=== PATIENT | male | born 1940 ===

== ENCOUNTER 2017-03-01 09:36 | Inpatient (IN) | payer OTHER ==
--- NOTE | 2017-03-01 11:42 | C.PDOC ---
History Of Present Illness 77 y/o male with PMHx of Anemia presents to ED sent by PMD for evaluation on near syncope and urine incontinence while at office earlier today. As per family at bedside patient has been feeling lightheaded for 2-3 weeks and went to see doctor today. While at office patient was sitting, stood up and became dizzy following shaking episode but as per family patient was oriented and did not have loc. There is inconsistency of whether patient had seizure episode. PMD sent patient for evaluation and to rule out seizure. At ed patient denies nausea, vomiting, abdominal pain, chest pain or any other complaints at this time. Time Seen by Provider: 03/01/17 11:09 Chief Complaint (Nursing): Syncope History Per: Patient, Family History/Exam Limitations: no limitations Onset/Duration Of Symptoms: Days, Worse Since (earlier today) Activity At Onset Of Symptoms: Standing Past Medical History Reviewed: Historical Data, Nursing Documentation, Vital Signs Vital Signs: Last Vital Signs Temp 97.7 F 03/04/17 07:45 Pulse 69 03/04/17 07:45 Resp 20 03/04/17 07:45 BP 144/70 03/04/17 07:45 Pulse Ox 98 03/04/17 07:45 - Medical History PMH: Anemia Surgical History: No Surg Hx Family History: States: No Known Family Hx - Social History Hx Alcohol Use: No Hx Substance Use: No - Immunization History Hx Tetanus Toxoid Vaccination: No Hx Influenza Vaccination: No Hx Pneumococcal Vaccination: No Review Of Systems Constitutional: Negative for: Fever, Chills Cardiovascular: Negative for: Chest Pain Gastrointestinal: Negative for: Nausea, Vomiting, Abdominal Pain Skin: Negative for: Rash Neurological: Positive for: Dizziness. Negative for: Weakness, Numbness Physical Exam - Physical Exam Additional Physical Exam Comments: Constitutional: No acute distress. Thin appearing Head: Normocephalic. Atraumatic. Temporal wasting Eyes: Pupils small. Pale conjunctiva ENT: Moist mucous membranes. Neck: Supple. Cardiovascular: Regular rate and rhythm. Chest: No tenderness. Respiratory: Clear to auscultation bilaterally. GI: Soft. Nontender. Nondistended. Normoactive bowel sounds. No rebound. No guarding. Back: No CVA and no mid-line tenderness. Musculoskeletal: No tenderness or swelling of extremities. Skin: No rash. Pale Neurologic: Alert, no focal deficit. Normal sensation. Normal motor. Normal cranial nerves ED Course And Treatment - Laboratory Results Result Diagrams: 03/04/17 08:15 03/04/17 08:15 ECG: Interpreted By Me, Viewed By Me ECG Rhythm: Sinus Rhythm ECG Interpretation: Normal Rate From EC (bpm) O2 Sat by Pulse Oximetry: 100 (RA) Pulse Ox Interpretation: Normal Medical Decision Making Medical Decision Making: Plan: Head CT w/ contrast, Blood work, UA, ECG Disposition Discussed With Dr.: Luiz Forbes Doctor Will See Patient In The: Hospital - Disposition Disposition: HOSPITALIZED Disposition Time: 14:15 Condition: SERIOUS - Clinical Impression Clinical Impression: Near syncope, Anemia - PA / LABOR RELATIONS OR PERSONNEL NEGOTIATOR / Resident Statement MD/DO has reviewed & agrees with the documentation as recorded. - Scribe Statement The provider has reviewed the documentation as recorded by the Miriamibjoslyn García All medical record entries made by the Scribe were at my direction and personally dictated by me. I have reviewed the chart and agree that the record accurately reflects my personal performance of the history, physical exam, medical decision making, and the department course for this patient. I have also personally directed, reviewed, and agree with the discharge instructions and disposition. Decision To Admit - Pt Status Changed To: Hospital Disposition Of: Inpatient - Admit Certification Admit to Inpatient:: After my assessment, the patient will require hospitalization for at least two midnights. This is because of the severity of symptoms shown, intensity of services needed, and/or the medical risk in this patient being treated as an outpatient. - InPatient: Physician Admission Certification: I certify that this patient requires 2 or more midnights of care for the following reason:: for tx of anemia, anemia workup - . Bed Request Type: Telemetry Patient Diagnosis: Near syncope, Anemia
[2017-03-01 12:22] LABS: BASO % 0.2 % (0.0-2.0); EOS % 1.4 % (0.0-4.0); HEMATOCRIT 15.2 % (35.0-51.0); LYMPH % 38.3 % (20.0-40.0); MEAN CELL VOLUME 106.1 fL (80.0-94.0); MEAN CORPUSCULAR HEMOGLOBIN 36.3 pg (27.0-31.0); MEAN CORPUSCULAR HGB CONC 34.2 g/dL (33.0-37.0); MEAN PLATELET VOLUME 9.7 fL (7.2-11.7); MONO # 0.1 K/uL (0.0-0.8); MONO % 1.9 % (0.0-10.0); NRBC % 0.2 % (0.0-2.0); RED CELL DISTRIBUTION WIDTH 19.8 % (11.5-14.5); WHITE BLOOD COUNT 2.7 K/uL (4.8-10.8)
--- NOTE | 2017-03-01 12:47 | CT ---
PROCEDURE: CT HEAD WITHOUT CONTRAST. HISTORY: R/O Bleed COMPARISON: None available. TECHNIQUE: Axial computed tomography images were obtained through the head/brain without intravenous contrast. Radiation dose: Total exam DLP = 828.03 mGy-cm. This CT exam was performed using one or more of the following dose reduction techniques: Automated exposure control, adjustment of the mA and/or kV according to patient size, and/or use of iterative reconstruction technique. FINDINGS: HEMORRHAGE: No intracranial hemorrhage. BRAIN: Diffuse atrophy with prominence of the ventricles and sulci noted. No mass effect or edema. Intracranial atherosclerosis. Scattered periventricular and subcortical white matter hypodensities, which are nonspecific, but often seen with chronic microvascular ischemic disease. Please note that MRI with diffusion imaging is more sensitive in the detection of acute ischemic event. VENTRICLES: No hydrocephalus. CALVARIUM: Unremarkable. PARANASAL SINUSES: Unremarkable as visualized. No significant inflammatory changes. MASTOID AIR CELLS: Unremarkable as visualized. No inflammatory changes. OTHER FINDINGS: None. IMPRESSION: Generalized atrophy. Nonspecific white matter changes.
[2017-03-01 13:48] LABS: ALB/GLOB RATIO 0.9 (1.0-2.1); ALKALINE PHOSPHATASE 57 U/L (38-126); ALT/SGPT 40 U/L (21-72); AST/SGOT 53 U/L (17-59); BLOOD UREA NITROGEN 15 mg/dL (9-20); CALCIUM 8.4 mg/dl (8.6-10.4); CARBON DIOXIDE 27 mmol/L (22-30); CHLORIDE 99 mmol/L (98-107); GFR AFRICAN-AMERICAN > 60; GLUCOSE,RANDOM 121 mg/dL (75-110); POTASSIUM 3.8 mmol/L (3.6-5.2); SODIUM 131 mmol/L (132-148); TOTAL PROTEIN 7.6 g/dL (6.3-8.3)
--- NOTE | 2017-03-01 14:43 | CP.PCM.HP ---
History of Present Illness - History of Present Illness History of Present Illness: CC: "I felt dizzy" HPI: Patient is a 77 year old male with no significant past medical history presents to the ED for dizziness. Patient states that he has been feeling dizzy for the past 2 weeks. This morning patient went to stand up and immediately felt like he was going to pass out. Patient states that he sat back down. Denies any loss of consciousness. Offers no other complaints at this time. Admits to having 10kg weight loss over the past year. Attributes weight loss to decrease in appetite. Patient reports that he last saw his PMD, Dr Eaton 1 year ago. Denies having any blood work done recently. Patient denies any history of anemia in the past. Denies headaches, visual changes, cp, palpitations, sob, abdominal pain, blood per rectum, urinary symptoms, changes in bowel habits or stool caliber. PMD: Dr Eaton Allergies: NKDA Medications: Denies Medical Hx: Denies Surgical Hx: Prostate surgery Social Hx: Denies alcohol, tobacco, drug use Family Hx: Non-contributory Indemand used for [place] Interpretation #[id number] Present on Admission - Present on Admission Any Indicators Present on Admission: No Review of Systems - Review of Systems All systems: reviewed and no additional remarkable complaints except - Constitutional Constitutional: Weight Loss. absent: Chills, Fever, Headache - EENT Eyes: absent: Change in Vision Ears: Dizziness - Cardiovascular Cardiovascular: absent: Chest Pain, Dyspnea, Dyspnea on Exertion, Palpitations - Respiratory Respiratory: absent: Cough, Dyspnea, Wheezing - Gastrointestinal Gastrointestinal: absent: Abdominal Pain, Change in Stool Character, Constipation, Diarrhea, Melena, Nausea, Vomiting - Genitourinary Genitourinary: absent: Dysuria, Hematuria - Neurological Neurological: Dizziness. absent: Confusion, Numbness, Frequent Falls, Headaches , Tingling - Psychiatric Psychiatric: absent: Anxiety, Depression Past Patient History - Past Social History Smoking Status: Never Smoked - HEMATOLOGICAL/ONCOLOGICAL Hx Anemia: Yes - GENITOURINARY/GYNECOLOGICAL Hx Prostate Problems: Yes - PSYCHIATRIC Hx Substance Use: No - SURGICAL HISTORY Other/Comment: PROSTATES SX - ANESTHESIA Hx Anesthesia: Yes Hx Anesthesia Reactions: No Meds Allergies/Adverse Reactions: Allergies Allergy/AdvReac Type Severity Reaction Status Date / Time No Known Allergies Allergy Verified 03/01/17 09:51 Physical Exam - Constitutional Appears: Well, No Acute Distress - Head Exam Head Exam: ATRAUMATIC, NORMAL INSPECTION, NORMOCEPHALIC - Eye Exam Eye Exam: EOMI, Normal appearance, PERRL. absent: Scleral icterus Pupil Exam: NORMAL ACCOMODATION Additional comments: +pale conjunctiva - ENT Exam ENT Exam: Mucous Membranes Moist - Neck Exam Neck exam: Positive for: Full Rom - Respiratory Exam Respiratory Exam: Clear to Auscultation Bilateral, NORMAL BREATHING PATTERN. absent: Decreased Breath Sounds, Rales, Rhonchi, Wheezes, Respiratory Distress - Cardiovascular Exam Cardiovascular Exam: REGULAR RHYTHM, +S1, +S2. absent: Tachycardia, Systolic Murmur - GI/Abdominal Exam GI & Abdominal Exam: Normal Bowel Sounds, Soft. absent: Distended, Firm, Guarding, Rebound, Rigid, Tenderness - Rectal Exam Rectal Exam: Deferred Additional comments: Rectal exam performed by ED attending, please see note - Extremities Exam Extremities exam: Positive for: full ROM, normal inspection, pedal pulses present. Negative for: calf tenderness, pedal edema - Back Exam Back exam: NORMAL INSPECTION - Neurological Exam Neurological exam: Alert, CN II-XII Intact, Oriented x3 - Psychiatric Exam Psychiatric exam: Normal Affect, Normal Mood - Skin Skin Exam: Dry, Normal Color, Warm Results - Vital Signs Recent Vital Signs: Last Vital Signs Temp 97.9 F 03/01/17 09:47 Pulse 65 03/01/17 09:47 Resp 16 03/01/17 09:47 BP 113/41 L 03/01/17 09:47 Pulse Ox 100 03/01/17 14:19 - Labs Result Diagrams: 03/01/17 12:16 03/01/17 12:16 Labs: Laboratory Results - last 24 hr 03/01/17 03/01/17 03/01/17 12:16 12:16 12:48 WBC 2.7 L RBC 1.43 L Hgb 5.2 L* Hct 15.2 L MCV 106.1 H MCH 36.3 H MCHC 34.2 RDW 19.8 H Plt Count 90 L MPV 9.7 Neut % (Auto) 58.2 Lymph % (Auto) 38.3 Weber % (Auto) 1.9 Eos % (Auto) 1.4 Baso % (Auto) 0.2 Neut # 1.6 L Lymph # 1.0 Weber # 0.1 Eos # 0.0 Baso # 0.0 Sodium 131 L Potassium 3.8 Chloride 99 Carbon Dioxide 27 Anion Gap 9 L BUN 15 Creatinine 0.8 Est GFR ( Amer) > 60 Est GFR (Non-Af Amer) > 60 Random Glucose 121 H Calcium 8.4 L Total Bilirubin 1.0 AST 53 ALT 40 Alkaline Phosphatase 57 Troponin I < 0.0120 Total Protein 7.6 Albumin 3.7 Globulin 4.0 H Albumin/Globulin Ratio 0.9 L Stool Occult Blood Blood Type B POSITIVE Blood Type Confirm B POSITIVE Antibody Screen Negative 03/01/17 13:15 WBC RBC Hgb Hct MCV MCH MCHC RDW Plt Count MPV Neut % (Auto) Lymph % (Auto) Weber % (Auto) Eos % (Auto) Baso % (Auto) Neut # Lymph # Weber # Eos # Baso # Sodium Potassium Chloride Carbon Dioxide Anion Gap BUN Creatinine Est GFR ( Amer) Est GFR (Non-Af Amer) Random Glucose Calcium Total Bilirubin AST ALT Alkaline Phosphatase Troponin I Total Protein Albumin Globulin Albumin/Globulin Ratio Stool Occult Blood Negative Blood Type Blood Type Confirm Antibody Screen Assessment & Plan - Assessment and Plan (Free Text) Assessment: 1. Symptomatic Anemia -Will admit to telemetry -Hgb on admission 5.2, baseline unknown -Patient denies any bleeding history -Stool occult negative -F/U anemia workup (Iron, TIBC, ferritin, Vit B12, Folate, Haptoglobin) -Transfuse 2 units of PRBCs -F/U post transfusion CBC -CT abd/pelvis with PO contrast ordered -Hematolgy/Oncology consulted, f/u recommendations -GI consulted, Dr. Raines, f/u recommendations 2. Near syncope likely secondary to symptomatic anemia -CT head showed generalized atrophy, non-specific white matter changes -Monitor on telemetry -Fall precautions 3. Pancytopenia -Patient states having 10kg weight loss over course of 1 year -Must R/O malignancy -Hematology/Oncology consult placed -Will continue to monitor GI/DVT ppx -Protonix 40mg PO daily -SCDs
[2017-03-01 15:24] LABS: RBC URINE 6 /hpf (0-3); URINE BILIRUBIN NEGATIVE (NEGATIVE); URINE BLOOD 1+ (NEGATIVE); URINE COLOR Yellow (YELLOW); URINE GLUCOSE (UA) NORMAL (Normal); URINE HYALINE CAST 0-2 /lpf (0-2); URINE KETONE TRACE mg/dL (NEGATIVE); URINE LEUKOCYTE ESTERASE NEG Leu/uL (Negative); URINE PROTEIN NEGATIVE (NEGATIVE); WBC URINE 2 /hpf (0-5)
[2017-03-01 15:46] LABS: IRON 113 ug/dL (49-181)
--- NOTE | 2017-03-01 15:47 | RAD ---
HISTORY: severe anemia,near syncope COMPARISON: No prior. FINDINGS: LUNGS: No active pulmonary disease. PLEURA: Small right pleural effusion versus pleural thickening. No pneumothorax apparent. CARDIOVASCULAR: Atherosclerotic aortic calcifications. Cardiomediastinal silhouette prominent. OSSEOUS STRUCTURES: Degenerative changes. VISUALIZED UPPER ABDOMEN: Normal. OTHER FINDINGS: None. IMPRESSION: Small right pleural effusion versus pleural thickening.
[2017-03-01 16:55] LABS: FOLATE 5.1 ng/mL
[2017-03-02 07:35] LABS: INR 1.2
[2017-03-02 07:44] LABS: BASO % 0.4 % (0.0-2.0); EOS % 2.2 % (0.0-4.0); HEMATOCRIT 20.3 % (35.0-51.0); LYMPH # 1.1 K/uL (1.0-4.3); LYMPH % 50.2 % (20.0-40.0); MEAN CORPUSCULAR HEMOGLOBIN 34.4 pg (27.0-31.0); MEAN CORPUSCULAR HGB CONC 35.4 g/dL (33.0-37.0); MEAN PLATELET VOLUME 9.3 fL (7.2-11.7); MONO % 1.9 % (0.0-10.0); NRBC % 0.3 % (0.0-2.0); RED CELL DISTRIBUTION WIDTH 20.2 % (11.5-14.5); WHITE BLOOD COUNT 2.2 K/uL (4.8-10.8)
[2017-03-02 07:46] LABS: MEAN CELL VOLUME 97.2 fL (80.0-94.0)
[2017-03-02 07:54] LABS: ALB/GLOB RATIO 1.2 (1.0-2.1); ALKALINE PHOSPHATASE 49 U/L (38-126); ALT/SGPT 32 U/L (21-72); AST/SGOT 51 U/L (17-59); BILIRUBIN,TOTAL 1.4 mg/dL (0.2-1.3); BLOOD UREA NITROGEN 12 mg/dL (9-20); CARBON DIOXIDE 29 mmol/L (22-30); CHLORIDE 98 mmol/L (98-107); GFR AFRICAN-AMERICAN > 60; GLUCOSE,RANDOM 90 mg/dL (75-110); POTASSIUM 3.9 mmol/L (3.6-5.2); SODIUM 129 mmol/L (132-148)
[2017-03-02 08:34] LABS: CARCINOEMBRYONIC ANTIGEN 1.2 ng/mL (0-3.0); PROSTATE SPECIFIC ANTIGEN 4.56 ng/mL (0.00-4.0)
[2017-03-02 09:10] LABS: CA 19-9 9.6 U/mL (0-37)
[2017-03-02 09:31] LABS: TOTAL PROTEIN 6.6 g/dL (6.3-8.3)
[2017-03-02] MEDS: Pantoprazole 40 mg EC Tab PO SCH (09:50)
--- NOTE | 2017-03-02 10:17 | CP.PCM.PN ---
Subjective - Date & Time of Evaluation Date of Evaluation: 03/02/17 Time of Evaluation: 09:51 - Subjective Subjective: PGY-[address] Forbes. No acute event overnight noted. Translation device was used to communicate. Patient' and daughter were at bedside. His only complaint today was feeling hungry (however patient is npo due to CT abd/pelvis). He denied dizziness today. Patient denies chest pain, abdominal pain, fevers, chills, nausea, vomiting, diarrhea, shortness of breath. Objective - Vital Signs/Intake and Output Vital Signs (last 24 hours): Temp Pulse Resp BP Pulse Ox 98.3 F 64 20 122/58 L 95 03/02/17 07:14 03/02/17 07:14 03/02/17 07:14 03/02/17 07:14 03/02/17 07:14 Intake and Output: 03/02/17 03/02/17 06:59 18:59 Intake Total 325 Balance 325 - Medications Medications: Current Medications Pantoprazole Sodium (Protonix Ec Tab) 40 mg PO DAILY [place] Last Admin: 03/02/17 09:50 Dose: Not Given - Labs Labs: 03/02/17 07:17 03/02/17 07:17 PT 13.4 SECONDS (9.7-12.2) H 03/02/17 07:17 INR 1.2 03/02/17 07:17 APTT 31 SECONDS (21-34) 03/02/17 07:17 - Additional Findings Additional findings: - Constitutional Appears: Well, No Acute Distress - Head Exam Head Exam: ATRAUMATIC, NORMAL INSPECTION, NORMOCEPHALIC - Eye Exam Eye Exam: EOMI, Normal appearance, PERRL. absent: Scleral icterus Pupil Exam: NORMAL ACCOMODATION Additional comments: +pale conjunctiva - ENT Exam ENT Exam: Mucous Membranes Moist - Neck Exam Neck exam: Positive for: Full Rom - Respiratory Exam Respiratory Exam: Clear to Auscultation Bilateral, NORMAL BREATHING PATTERN. absent: Decreased Breath Sounds, Rales, Rhonchi, Wheezes, Respiratory Distress - Cardiovascular Exam Cardiovascular Exam: REGULAR RHYTHM, +S1, +S2. absent: Tachycardia, Systolic Murmur - GI/Abdominal Exam GI & Abdominal Exam: Normal Bowel Sounds, Soft. absent: Distended, Firm, Guarding, Rebound, Rigid, Tenderness - Rectal Exam Rectal Exam: Deferred Additional comments: Rectal exam performed by ED attending, please see note - Extremities Exam Extremities exam: Positive for: full ROM, normal inspection, pedal pulses present. Negative for: calf tenderness, pedal edema - Back Exam Back exam: NORMAL INSPECTION - Neurological Exam Neurological exam: Alert, Oriented x3 - Psychiatric Exam Psychiatric exam: Normal Affect, Normal Mood - Skin Skin Exam: Dry, Normal Color, Warm Assessment and Plan - Assessment and Plan (Free Text) Assessment: Symptomatic Anemia Likely 2/2 to Vitamin B12 deficiency: Elevated MCV, Vitamin B12 <159 (L), elevated LDH Patient denies hx of bleeding; FOBT negative; Denies alcohol use GI consulted, Dr. Raines Heme/Onc consulted, Dr Irwin Hgb 5.2 on admission, baseline unknown, no prior records in chart; s/p transfusion of 2 units of pRBCs 03/01; Hgb improved to 7.2 post transfusion Iron 113, TIBC 202 (L), Ferritin 251, % Saturation 56 (H), Retic Count 2 (H) -Calculated Reticulocyte Index = <2.0 -> signifies hypoproliferation Elevated MCV, Vitamin B12 <159 (L), Folate 5.1, Lactate Dehydrogenase 3569 (H) F/U Haptoglobin, Indirect Bili F/U CT abd/pelvis with PO contrast Possible EGD after CT abd/pelvis results Meds: Vitamin B12 1mg IM QD started 03/02 (will con't IM QD for 7 days then PO QWK for 4 weeks then QMonth for life) Dextrose 5% in NS IV @ 80 cc/hr Near syncope Likely 2/[address] head 03/01: generalized atrophy, non-specific white matter changes Fall precautions Pancytopenia Severe megaloblastic anemia can cause pancytopenia, however must r/o malignancy Decreased appetite; Weight loss of 10kg over last 1 year Heme/Onc consulted, Dr Irwin F/U CT abd/pelvis with PO contrast F/U Protein electrophoresis Carcinoembryonic Ag WNL, CA 19-9 Antigen WNL Elevated Prostate Specific Ag F/U CT abd/pelvis with PO contrast UA 03/01: 1+ blood, RBC 6 (H) GI/DVT ppx Protonix 40mg PO daily SCDs
[2017-03-02] MEDS ORDERED: Iohexol 240 (50 ml) PO ONE (13:00)
--- NOTE | 2017-03-02 17:24 | CT ---
PROCEDURE: CT Abdomen and Pelvis with contrast HISTORY: symptomatic anemia, hgb 5 COMPARISON: None. TECHNIQUE: Oral contrast only. Radiation dose: Total exam DLP = 376.73 mGy-cm. This CT exam was performed using one or more of the following dose reduction techniques: Automated exposure control, adjustment of the mA and/or kV according to patient size, and/or use of iterative reconstruction technique. FINDINGS: LOWER THORAX: Dependent atelectasis. Solitary pulmonary nodule 6 mm basilar segment right lower lobe. Please refer to axial series 5, image 17. Orthogonal sequences confirmation sagittal series 602, image 55. LIVER: Unremarkable. No gross lesion or ductal dilatation. Multiple hepatic masses/cysts. None of these sampled exceed mean Hounsfield values of 10. GALLBLADDER AND BILE DUCTS: Unremarkable. PANCREAS: Unremarkable. No gross lesion or ductal dilatation. SPLEEN: Unremarkable. ADRENALS: Unremarkable. No mass. KIDNEYS AND URETERS: Unremarkable. No hydronephrosis. No solid mass. VASCULATURE: Unremarkable. No aortic aneurysm. BOWEL: Unremarkable. No obstruction. No gross mural thickening. Constipation without fecal impaction or obstruction. Diverticulosis particularly in the descending colon and sigmoid. No definite colonic masses although fecal debris and sigmoid wall thickness cannot be differentiated in a short segment of the distal descending colon. . No definite colonic mass is associated with this finding. The area of most interest, concern of resides in the distal sigmoid Cystic mass contiguous with perhaps emanating from the greater curvature of the stomach. This measures 3.3 cm. Please refer to series 3 axial image 26. APPENDIX: Normal appendix. PERITONEUM: Unremarkable. No free fluid. No free air. LYMPH NODES: Unremarkable. No enlarged lymph nodes. BLADDER: Unremarkable. REPRODUCTIVE: Enlarged prostate 4.9 x 5.5 cm BONES: No acute fracture. Small cortical lucencies super acetabular region on the left. These appear to be benign. Multilevel degenerative change. OTHER FINDINGS: None. IMPRESSION: No acute findings related to/accounting for the clinical presentation. Indeterminate findings in the left upper quadrant likely cystic mass emanating from the greater curve. Diverticulosis particularly in the descending colon and sigmoid.
[2017-03-02] MEDS: Dextrose 5%/0.9% NS 1,000 ML IV SCH (18:22)
[2017-03-03] MEDS: Dextrose 5%/0.9% NS 1,000 ML IV SCH ×2 (05:58→16:56)
--- NOTE | 2017-03-03 06:43 | CON ---
DATE: 03/02/2017 LOCATION: Room 562, bed A. I was called for a GI consultation. The patient is seen and examined in the floor. The entire chart is reviewed including but not limited to the most recent lab and radiology study results, current and the previous medication list, current and the previous medical events. Case discussed with the medical reception specialist today. HISTORY OF PRESENT ILLNESS: This is a 77 years old male who was admitted to the hospital through the emergency room with underlying diagnoses of generalized weakness and malaise, was found to have severe anemia with low hemoglobin and hematocrit. Has no reported active bleeding, no abdominal pain, no chest pain, and the patient has a history of anemia as reported. LABORATORY DATA: Today's labs showed hemoglobin increased 7.2 with hematocrit 20.3 but with platelet count of 64 with low white blood cells 2.2 indicative of pancytopenia with low sodium 129 and mildly elevated total bilirubin 1.4 with excessive increase of the lactate dehydrogenase to 3569 with increased PSA to 4.5 as ordered by myself. PHYSICAL EXAMINATION: GENERAL: Showed no significant clinical changes. Patient is afebrile, awake, alert. VITAL SIGNS: Pulse of 70, respiratory rate 20 to 22, blood pressure 124/54. IMPRESSION: Anemia, hypochromic microcytic with evidence of pancytopenia. No evidence of bleeding, no reported body weight loss as per patient's statement through label stitcher. SUGGESTIONS: 1. Agree with your plan. 2. Ultrasound of the prostate. 3. Hematology/Oncology consult. 4. Barium enema to be followed by upper GI with small bowel follow through after abdominal CAT scan to be done. 5. Any endoscopic procedure could be done as outpatient as the patient has no signs of active bleeding and his anemia apparently is chronic. Thank you for letting me participate in your patient's case management. We will follow up only p.r.n. as outpatient. Mitesh Salgado MD
--- NOTE | 2017-03-03 07:10 | CP.PCM.PN ---
Subjective - Date & Time of Evaluation Date of Evaluation: 03/03/17 Time of Evaluation: 07:03 - Subjective Subjective: PGY-[address] Forbes. No acute event overnight noted. Translation device was used to communicate. Patient was NPO for possible EGD today, however after speaking to Dr Raines EGD will not be done and diet was re-started. He again denied dizziness today. Patient denies chest pain, abdominal pain, fevers, chills, nausea, vomiting, diarrhea, shortness of breath. Objective - Vital Signs/Intake and Output Vital Signs (last 24 hours): Temp Pulse Resp BP Pulse Ox 98 F 60 18 111/55 L 97 03/02/17 23:58 03/03/17 04:06 03/02/17 23:58 03/02/17 23:58 03/02/17 23:58 Intake and Output: 03/03/17 03/03/17 06:59 18:59 Intake Total 1720 Balance 1720 - Medications Medications: Current Medications Cyanocobalamin (Vitamin B12 1000 Mcg/Ml Inj) 1,000 mcg IM DAILY [facility] Stop: 03/06/17 23:59 Last Admin: 03/02/17 10:27 Dose: Not Given Dextrose/Sodium Chloride (Dextrose 5%/0.9% Ns 1000 Ml) 1,000 mls @ 80 mls/hr IV .[id number] [facility] Last Admin: 03/03/17 05:58 Dose: 80 mls/hr Pantoprazole Sodium (Protonix Ec Tab) 40 mg PO DAILY [facility] Last Admin: 03/02/17 09:50 Dose: Not Given - Labs Labs: 03/02/17 07:17 03/02/17 07:17 PT 13.4 SECONDS (9.7-12.2) H 03/02/17 07:17 INR 1.2 03/02/17 07:17 APTT 31 SECONDS (21-34) 03/02/17 07:17 - Additional Findings Additional findings: - Constitutional Appears: Well, No Acute Distress - Head Exam Head Exam: ATRAUMATIC, NORMAL INSPECTION, NORMOCEPHALIC - Eye Exam Eye Exam: EOMI, Normal appearance, PERRL. absent: Scleral icterus Pupil Exam: NORMAL ACCOMODATION Additional comments: +pale conjunctiva - ENT Exam ENT Exam: Mucous Membranes Moist - Neck Exam Neck exam: Positive for: Full Rom - Respiratory Exam Respiratory Exam: Clear to Auscultation Bilateral, NORMAL BREATHING PATTERN. absent: Decreased Breath Sounds, Rales, Rhonchi, Wheezes, Respiratory Distress - Cardiovascular Exam Cardiovascular Exam: REGULAR RHYTHM, +S1, +S2. absent: Tachycardia, Systolic Murmur - GI/Abdominal Exam GI & Abdominal Exam: Normal Bowel Sounds, Soft. absent: Distended, Firm, Guarding, Rebound, Rigid, Tenderness - Rectal Exam Rectal Exam: Deferred Additional comments: Rectal exam performed by ED attending, please see note - Extremities Exam Extremities exam: Positive for: full ROM, normal inspection, pedal pulses present. Negative for: calf tenderness, pedal edema - Back Exam Back exam: NORMAL INSPECTION - Neurological Exam Neurological exam: Alert, Oriented x3 - Psychiatric Exam Psychiatric exam: Normal Affect, Normal Mood - Skin Skin Exam: Dry, Normal Color, Warm Assessment and Plan - Assessment and Plan (Free Text) Assessment: Symptomatic Anemia Likely 2/2 to Vitamin B12 deficiency: Elevated MCV, Vitamin B12 <159 (L), elevated LDH Patient denies hx of bleeding; FOBT negative; Denies alcohol use GI consulted, Dr. Raines - per Dr Raines, endoscopic procedures to be done outpatient as pt w/ no signs of active bleeding and anemia is chronic; per Dr Raines patient refused bone marrow biopsy in ED. Heme/Onc consulted, Dr Irwin Hgb 5.2 on admission, baseline unknown, no prior records in chart s/p transfusion of 2 units of pRBCs 03/01 s/p transfusion of 2 units of pRBC 03/03 Iron 113, TIBC 202 (L), Ferritin 251, % Saturation 56 (H), Retic Count 2 (H) -Calculated Reticulocyte Index = <2.0 -> signifies hypoproliferation Elevated MCV, Vitamin B12 <159 (L), Folate 5.1, Lactate Dehydrogenase 3569 (H) Haptoglobin <15 (L) Direct Bili 0.5 (H), Total Bili 1.4 (H) Hep panel negative HIV Screen negative CT abd/pelvis with PO contrast 03/01 results shown below Consider barium enema of upper GI w/ small bowel follow through for 03/04 F/U parietal cell Ab F/U Flow cytometry Meds: Vitamin B12 1mg IM QD started 03/02 (will con't IM QD for 7 days then PO QWK for 4 weeks then QMonth for life) Dextrose 5% in NS IV @ 80 cc/hr Folate 1mg PO QD Near syncope Likely 2/[address] head 03/01: generalized atrophy, non-specific white matter changes Fall precautions Pancytopenia Severe megaloblastic anemia can cause pancytopenia, however must r/o malignancy Decreased appetite; Weight loss of 10kg over last 1 year Heme/Onc consulted, Dr Irwin CT abd/pelvis with PO contrast 03/01: "Multiple hepatic masses/cysts. None of these sampled exceed mean Hounsfield values of 10. Solitary pulmonary nodule 6 mm basilar segment right lower lung lobe. Cystic mass contiguous with perhaps emanating from the greater curvature of the stomach. This measures 3.3 cm. Impression: Indeterminate findings in the left upper quadrant likely cystic mass emanating from the greater curve. Diverticulosis particularly in the descending colon and sigmoid". Serum PEP 03/01: Decrease in albumin. Pattern suggestive of decreased protein synthesis or protein loss. Carcinoembryonic Ag WNL, CA 19-9 Antigen WNL Elevated Prostate Specific Ag UA 03/01: 1+ blood, RBC 6 (H) CT abd/pelvis with PO contrast: enlarged prostate 4.9 x 5.5 cm A transrectal prostate ultrasound was ordered however this could not be done in house (per tech) and will to be done outpatient GI/DVT ppx Protonix 40mg PO daily [facility] Disposition: Per Dr Raines, endoscopic procedures (colonoscopy) to be done outpatient. Patient needs to establish care with a PMD. He will need contact information for [facility] upon discharge.
[2017-03-03 07:37] LABS: BASO % 0.2 % (0.0-2.0); EOS % 2.8 % (0.0-4.0); HEMATOCRIT 19.7 % (35.0-51.0); LYMPH # 0.8 K/uL (1.0-4.3); LYMPH % 44.3 % (20.0-40.0); MEAN CELL VOLUME 97.7 fL (80.0-94.0); MEAN CORPUSCULAR HEMOGLOBIN 34.8 pg (27.0-31.0); MEAN CORPUSCULAR HGB CONC 35.6 g/dL (33.0-37.0); MEAN PLATELET VOLUME 9.3 fL (7.2-11.7); MONO % 2.2 % (0.0-10.0); NRBC % 0.1 % (0.0-2.0); RED CELL DISTRIBUTION WIDTH 20.5 % (11.5-14.5)
[2017-03-03 07:48] LABS: WHITE BLOOD COUNT 1.8 K/uL (4.8-10.8)
[2017-03-03 08:39] LABS: ALB/GLOB RATIO 1.2 (1.0-2.1); ALKALINE PHOSPHATASE 44 U/L (38-126); ALT/SGPT 31 U/L (21-72); AST/SGOT 35 U/L (17-59); BILIRUBIN,DIRECT 0.5 mg/dL (0.0-0.4); BILIRUBIN,TOTAL 1.4 mg/dL (0.2-1.3); BLOOD UREA NITROGEN 11 mg/dL (9-20); CALCIUM 7.8 mg/dl (8.6-10.4); CARBON DIOXIDE 28 mmol/L (22-30); CHLORIDE 99 mmol/L (98-107); GFR AFRICAN-AMERICAN > 60; GLUCOSE,RANDOM 96 mg/dL (75-110); POTASSIUM 3.9 mmol/L (3.6-5.2); SODIUM 127 mmol/L (132-148); TOTAL PROTEIN 5.3 g/dL (6.3-8.3)
[2017-03-03] MEDS: Pantoprazole 40 mg EC Tab PO SCH (09:06)
[2017-03-03 11:46] LABS: BETA 1 GLOBULIN 0.3 g/dL (0.4-0.6); BETA 2 GLOBULIN 0.3 g/dL (0.2-0.5); GAMMA GLOBULIN 1.4 g/dL (0.8-1.7)
[2017-03-04 08:30] LABS: BASO % 0.3 % (0.0-2.0); EOS # 0.1 K/uL (0.0-0.7); EOS % 2.8 % (0.0-4.0); HEMATOCRIT 26.6 % (35.0-51.0); LYMPH # 1.2 K/uL (1.0-4.3); MEAN CORPUSCULAR HEMOGLOBIN 33.3 pg (27.0-31.0); MEAN CORPUSCULAR HGB CONC 35.8 g/dL (33.0-37.0); MEAN PLATELET VOLUME 9.7 fL (7.2-11.7); MONO # 0.1 K/uL (0.0-0.8); MONO % 2.7 % (0.0-10.0); NRBC % 0.2 % (0.0-2.0); WHITE BLOOD COUNT 2.3 K/uL (4.8-10.8)
[2017-03-04 08:31] LABS: MEAN CELL VOLUME 93.2 fL (80.0-94.0)
[2017-03-04] MEDS: Pantoprazole 40 mg EC Tab PO SCH (09:15)
[2017-03-04 09:53] LABS: ALB/GLOB RATIO 0.9 (1.0-2.1); ALKALINE PHOSPHATASE 50 U/L (38-126); ALT/SGPT 29 U/L (21-72); AST/SGOT 32 U/L (17-59); BILIRUBIN,TOTAL 1.4 mg/dL (0.2-1.3); BLOOD UREA NITROGEN 10 mg/dL (9-20); CALCIUM 8.1 mg/dl (8.6-10.4); CARBON DIOXIDE 26 mmol/L (22-30); CHLORIDE 99 mmol/L (98-107); GFR AFRICAN-AMERICAN > 60; GLUCOSE,RANDOM 92 mg/dL (75-110); POTASSIUM 3.9 mmol/L (3.6-5.2); SODIUM 129 mmol/L (132-148); TOTAL PROTEIN 6.9 g/dL (6.3-8.3)
--- NOTE | 2017-03-04 11:30 | CP.PCM.PN ---
Subjective - Date & Time of Evaluation Date of Evaluation: 03/04/17 Time of Evaluation: 11:24 - Subjective Subjective: will DuctatE Dx: PANCYTOPENIA , LOW B12, HIGH LDH, LOW HAPTOGLOBIN, LOW SODIUM, SEVERE ANEMIA REQUIRING BLOOD CT WITH GREATER CURVATURE CYSTIC MASS - NEEDS EGD MIREYA CT ABDOMEN WITH COTRAST R/O GASTIC MALIGNANCY WHICH MAY BE REASON FOR HIS LOW B12. SUGGEST: ANTI PARIETAL CELL ANTOBODIES, HIV TEST, HEPATITIS PROFILE, EGD WILL ALSO NEED BONE MARROW BIOPSY IF THE PATIENT AGREES. ALSO SEND LABS FOR ANTIBODY PANEL FLOWCYTOMETRY FOR [facility]... WILL NEED CLOSE FOLLOW UP IN CLINIC AND OUTPATIENT - [facility]. DISCUSSED WITH ALL INVOLVED... Objective - Vital Signs/Intake and Output Vital Signs (last 24 hours): Temp Pulse Resp BP Pulse Ox 97.7 F 69 20 144/70 98 03/04/17 07:45 03/04/17 07:45 03/04/17 07:45 03/04/17 07:45 03/04/17 07:45 Intake and Output: 03/04/17 03/04/17 06:59 18:59 Intake Total 2935 Balance 2935 - Medications Medications: Current Medications Cyanocobalamin (Vitamin B12 1000 Mcg/Ml Inj) 1,000 mcg IM DAILY [facility] Stop: 03/06/17 23:59 Last Admin: 03/04/17 09:15 Dose: 1,000 mcg Folic Acid (Folic Acid) 1 mg PO DAILY [facility] Last Admin: 03/04/17 09:15 Dose: 1 mg Dextrose/Sodium Chloride (Dextrose 5%/0.9% Ns 1000 Ml) 1,000 mls @ 80 mls/hr IV .[id number] [facility] Last Admin: 03/03/17 16:56 Dose: Not Given Pantoprazole Sodium (Protonix Ec Tab) 40 mg PO DAILY [facility] Last Admin: 03/04/17 09:15 Dose: 40 mg - Labs Labs: 03/04/17 08:15 03/04/17 08:15 PT 13.4 SECONDS (9.7-12.2) H 03/02/17 07:17 INR 1.2 03/02/17 07:17 APTT 31 SECONDS (21-34) 03/02/17 07:17
[2017-03-04] MEDS ORDERED: Iohexol 240 (50 ml) PO ONE (14:15)
--- NOTE | 2017-03-04 15:08 | CP.PCM.PN ---
<Steve Lind - Last Filed: 03/04/17 15:06> Subjective - Date & Time of Evaluation Date of Evaluation: 03/04/17 Time of Evaluation: 15:06 - Subjective Subjective: Progress note for Dr Forbes's Service Pt was seen and examined at [facility]. No acute event overnight noted. Patient denies chest pain, abdominal pain, fevers, chills, nausea, vomiting, diarrhea, shortness of breath. He was seen by Dr. Irwin who is concerned about possible malignancies. Objective - Vital Signs/Intake and Output Vital Signs (last 24 hours): Temp Pulse Resp BP Pulse Ox 97.7 F 69 20 144/70 100 03/04/17 07:45 03/04/17 07:45 03/04/17 07:45 03/04/17 07:45 03/04/17 14:29 Intake and Output: 03/04/17 03/04/17 06:59 18:59 Intake Total 2935 Balance 2935 - Medications Medications: Current Medications Cyanocobalamin (Vitamin B12 1000 Mcg/Ml Inj) 1,000 mcg IM DAILY [facility] Stop: 03/06/17 23:59 Last Admin: 03/04/17 09:15 Dose: 1,000 mcg Folic Acid (Folic Acid) 1 mg PO DAILY [facility] Last Admin: 03/04/17 09:15 Dose: 1 mg Pantoprazole Sodium (Protonix Ec Tab) 40 mg PO DAILY [facility] Last Admin: 03/04/17 09:15 Dose: 40 mg - Labs Labs: 03/04/17 08:15 03/04/17 08:15 PT 13.4 SECONDS (9.7-12.2) H 03/02/17 07:17 INR 1.2 03/02/17 07:17 APTT 31 SECONDS (21-34) 03/02/17 07:17 - Constitutional Appears: No Acute Distress - Head Exam Head Exam: ATRAUMATIC, NORMAL INSPECTION - Eye Exam Eye Exam: EOMI Additional comments: pale conjunctiva - ENT Exam ENT Exam: Mucous Membranes Moist - Respiratory Exam Respiratory Exam: Clear to Ausculation Bilateral, NORMAL BREATHING PATTERN - Cardiovascular Exam Cardiovascular Exam: REGULAR RHYTHM, +S1, +S2 - GI/Abdominal Exam GI & Abdominal Exam: Soft. absent: Tenderness - Neurological Exam Neurological Exam: Alert, Awake, Oriented x3 - Skin Skin Exam: Dry, Intact Assessment and Plan - Assessment and Plan (Free Text) Plan: Symptomatic Anemia Likely 2/2 to Vitamin B12 deficiency: Elevated MCV, Vitamin B12 <159 (L), elevated LDH Patient denies hx of bleeding; FOBT negative; Denies alcohol use GI consulted, Dr. Raines - per Dr Raines, endoscopic procedures to be done outpatient as pt w/ no signs of active bleeding and anemia is chronic; per Dr Raines patient refused bone marrow biopsy in ED. Heme/Onc consulted, Dr Irwin- recommendations appreciated There is concern for possible GI malignancy which may be precipitating B12 deficiency. This patient will need GI workup and seems unlikely to obtain treatments as an outpatient. Hgb 5.2 on admission, baseline unknown, no prior records in chart Hemoglobin 03/04 9.5 s/p transfusion of 2 units of pRBCs 03/01 s/p transfusion of 2 units of pRBC 03/03 Iron 113, TIBC 202 (L), Ferritin 251, % Saturation 56 (H), Retic Count 2 (H) -Calculated Reticulocyte Index = <2.0 -> signifies hypoproliferation Elevated MCV, Vitamin B12 <159 (L), Folate 5.1, Lactate Dehydrogenase 3569 (H) Haptoglobin <15 (L) Direct Bili 0.5 (H), Total Bili 1.4 (H) Hep panel negative HIV Screen negative CT abd/pelvis with PO contrast 03/01 results shown below Consider barium enema of upper GI w/ small bowel follow through F/U parietal cell Ab F/U Flow cytometry Meds: Vitamin B12 1mg IM QD started 03/02 (will con't IM QD for 7 days then PO QWK for 4 weeks then QMonth for life) Dextrose 5% in NS IV @ 80 cc/hr- discontinued-Pt is tolerating his diet without nausea/vomiting Folate 1mg PO QD Near syncope Likely 2/[address] head 03/01: generalized atrophy, non-specific white matter changes Fall precautions Pancytopenia Severe megaloblastic anemia can cause pancytopenia, however must r/o malignancy Decreased appetite; Weight loss of 10kg over last 1 year Heme/Onc consulted, Dr Irwin CT abd/pelvis with PO contrast 03/01: "Multiple hepatic masses/cysts. None of these sampled exceed mean Hounsfield values of 10. Solitary pulmonary nodule 6 mm basilar segment right lower lung lobe. Cystic mass contiguous with perhaps emanating from the greater curvature of the stomach. This measures 3.3 cm. Impression: Indeterminate findings in the left upper quadrant likely cystic mass emanating from the greater curve. Diverticulosis particularly in the descending colon and sigmoid". Serum PEP 03/01: Decrease in albumin. Pattern suggestive of decreased protein synthesis or protein loss. Carcinoembryonic Ag WNL, CA 19-9 Antigen WNL Elevated Prostate Specific Ag UA 03/01: 1+ blood, RBC 6 (H) CT abd/pelvis with PO contrast: enlarged prostate 4.9 x 5.5 cm A transrectal prostate ultrasound was ordered however this could not be done in house (per tech) and will to be done outpatient GI/DVT ppx Protonix 40mg PO daily [facility] This patient is unlikely to obtain the necessary medical procedures as an outpatient. We will continue to follow his labs and tests we have done. No pending discharge at this point. We will continue inpatient workup and discharge patient when he is more stable. Case discussed with Dr. Forbes. <Luiz Forbes - Last Filed: 03/04/17 16:59> Objective - Vital Signs/Intake and Output Vital Signs (last 24 hours): Temp Pulse Resp BP Pulse Ox 98.1 F 67 20 135/78 96 03/04/17 16:02 03/04/17 16:02 03/04/17 16:02 03/04/17 16:02 03/04/17 16:02 Intake and Output: 03/04/17 03/04/17 06:59 18:59 Intake Total 2935 Balance 2935 - Medications Medications: Current Medications Cyanocobalamin (Vitamin B12 1000 Mcg/Ml Inj) 1,000 mcg IM DAILY [facility] Stop: 03/06/17 23:59 Last Admin: 03/04/17 09:15 Dose: 1,000 mcg Folic Acid (Folic Acid) 1 mg PO DAILY [facility] Last Admin: 03/04/17 09:15 Dose: 1 mg Pantoprazole Sodium (Protonix Ec Tab) 40 mg PO DAILY [facility] Last Admin: 03/04/17 09:15 Dose: 40 mg - Labs Labs: 03/04/17 08:15 03/04/17 08:15 PT 13.4 SECONDS (9.7-12.2) H 03/02/17 07:17 INR 1.2 03/02/17 07:17 APTT 31 SECONDS (21-34) 03/02/17 07:17 Attending/Attestation - Attestation I have personally seen and examined this patient.: Yes I have fully participated in the care of the patient.: Yes I have reviewed all pertinent clinical information, including history, physical exam and plan: Yes Notes (Text): Seen and examined.patient feela better. Had long discussion with the patient and his son Krishna about the plan,CT findings and consultants recommendations in detail.They appreciated the care. Patient has poor appetitie and intake is poor.No vomting,no dysphagia. D/W Dr Jones hemo oncologist labs ordered.He recommends EGD and biopsy.D/w Dr Raines gastro enterologist. Dr Raines thinks its difficult to do gastric cystic mass biopsy .Risk of rupture and complications.He asked for surgery evaluation. we will continue Vit B12 injection 03/04/17 16:52
[2017-03-04] MEDS ORDERED: Iodixanol 320 MG/ML 100 ML BOTTLE IV ONE (18:13)
--- NOTE | 2017-03-04 19:47 | CP.PCM.CON ---
History of Present Illness - History of Present Illness History of Present Illness: General surgery consult note for Dr. Lisa Melendez, PGY-1 Pt S & E at bedside. bottle blower used to obtain information. 77M w/PMH sig for anemia consulted for cystic gastric mass on CT abdomen. Pt reports that he was admitted to the hospital due to dizziness x 2 wks. Upon admission to hospital, pt was found to have severe anemia - Hgb 5.2. Pt was transfused. Pt reports recent move from [place]. Admits to fatigue, recent unintentional wt loss of 10kg/6 mos, loss of appetite, Right ear tinnitus, and generalized weakness. Denies N & V, changes in bowel habits (constipation, diarrhea, change in stool size/caliber), changes in bladder habits (dysuria, urgency, frequency), hematuria, hematemesis, hematochezia, F & C, abdominal pain , chest pain, SOB, palpitations, other complaints. Hospital work up positive for "cystic mass continguous with/perhaps emanating from the greater curvature of the stomach" measuring 3.3 cm. Pt w/leukopenia, anemia, hyponatremia, and hyperbilirubinemia (1.4). CEA WNL, CA 19-9 WNL. PSA high at 4.56. HIV & hep panel neg. PMH: Anemia PSH: Prostectomy via midline suprapubic abdominal incision All: NKDA SH: Denies tobacco, ETOH or illicit drug use. 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 Review of Systems - Review of Systems All systems: reviewed and no additional remarkable complaints except - Constitutional Constitutional: Fatigue, Weight Loss, Weakness. absent: Chills, Fever, Headache - EENT Eyes: absent: Change in Vision Ears: Dizziness Nose/Mouth/Throat: absent: Sore Throat - Cardiovascular Cardiovascular: absent: Chest Pain, Palpitations, Syncope - Respiratory Respiratory: absent: Cough - Gastrointestinal Gastrointestinal: absent: Abdominal Pain, Change in Bowel Habits, Change in Stool Character, Coffee Ground Emesis, Constipation, Cramping, Diarrhea, Dysphagia, Excessive Flatus, Hematemesis, Hematochezia, Nausea, Vomiting - Genitourinary Genitourinary: absent: Change in Urinary Stream, Difficulty Urinating - Musculoskeletal Musculoskeletal: absent: Numbness, Tingling - Integumentary Integumentary: absent: Rash - Neurological Neurological: Abnormal Hearing (ringing in his right ear), Weakness - Psychiatric Psychiatric: Change in Appetite (decreased) Past Patient History - Past Medical History & Family History Past Medical History?: Yes - Past Social History Smoking Status: Never Smoked - HEMATOLOGICAL/ONCOLOGICAL Hx Anemia: Yes - MUSCULOSKELETAL/RHEUMATOLOGICAL Hx Falls: No - GENITOURINARY/GYNECOLOGICAL Hx Prostate Problems: Yes - PSYCHIATRIC Hx Substance Use: No - SURGICAL HISTORY Other/Comment: PROSTATES SX - ANESTHESIA Hx Anesthesia: Yes Hx Anesthesia Reactions: No Meds Allergies/Adverse Reactions: Allergies Allergy/AdvReac Type Severity Reaction Status Date / Time No Known Allergies Allergy Verified 03/01/17 09:51 - Medications Medications: Current Medications Cyanocobalamin (Vitamin B12 1000 Mcg/Ml Inj) 1,000 mcg IM DAILY [facility] Stop: 03/06/17 23:59 Last Admin: 03/04/17 09:15 Dose: 1,000 mcg Folic Acid (Folic Acid) 1 mg PO DAILY [facility] Last Admin: 03/04/17 09:15 Dose: 1 mg Pantoprazole Sodium (Protonix Ec Tab) 40 mg PO DAILY [facility] Last Admin: 03/04/17 09:15 Dose: 40 mg Physical Exam - Constitutional Appears: Non-toxic, No Acute Distress, Older Than Stated Age - Head Exam Head Exam: ATRAUMATIC, NORMAL INSPECTION, NORMOCEPHALIC - Eye Exam Eye Exam: EOMI, Normal appearance - ENT Exam ENT Exam: Mucous Membranes Moist, Normal Exam - Neck Exam Neck exam: Positive for: Full Rom, Normal Inspection - Respiratory Exam Respiratory Exam: Clear to Auscultation Bilateral, NORMAL BREATHING PATTERN - Cardiovascular Exam Cardiovascular Exam: REGULAR RHYTHM, +S1, +S2 - GI/Abdominal Exam GI & Abdominal Exam: absent: Distended, Firm, Guarding - Extremities Exam Extremities exam: Positive for: normal inspection. Negative for: pedal edema - Back Exam Back exam: NORMAL INSPECTION - Neurological Exam Neurological exam: Alert, CN II-XII Intact, Oriented x3 - Psychiatric Exam Psychiatric exam: Normal Affect, Normal Mood - Skin Skin Exam: Dry, Intact, Normal Color, Warm Additional comments: Well healed suprapubic to umbilical midline scar Results - Vital Signs Recent Vital Signs: Last Vital Signs Temp 98.1 F 03/04/17 16:02 Pulse 67 03/04/17 16:02 Resp 20 03/04/17 16:02 BP 135/78 03/04/17 16:02 Pulse Ox 96 03/04/17 16:02 - Labs Result Diagrams: 03/04/17 08:15 03/04/17 08:15 Labs: Laboratory Results - last 24 hr 03/01/17 03/04/17 03/04/17 12:48 08:15 08:15 WBC 2.3 L RBC 2.85 L Hgb 9.5 L D Hct 26.6 L MCV 93.2 D MCH 33.3 H MCHC 35.8 RDW 19.0 H Plt Count 48 L MPV 9.7 Neut % (Auto) 44.2 L Lymph % (Auto) 50.0 H Mcminn % (Auto) 2.7 Eos % (Auto) 2.8 Baso % (Auto) 0.3 Neut # 1.0 L Lymph # 1.2 Mcminn # 0.1 Eos # 0.1 Baso # 0.0 Sodium 129 L Potassium 3.9 Chloride 99 Carbon Dioxide 26 Anion Gap 8 L BUN 10 Creatinine 0.6 L Est GFR ( Amer) > 60 Est GFR (Non-Af Amer) > 60 Random Glucose 92 Calcium 8.1 L Total Bilirubin 1.4 H AST 32 ALT 29 Alkaline Phosphatase 50 Total Protein 6.9 Albumin 3.2 L Globulin 3.7 Albumin/Globulin Ratio 0.9 L Blood Type B POSITIVE Blood Type Confirm B POSITIVE Antibody Screen Negative Assessment & Plan - Assessment and Plan (Free Text) Assessment: 77M w/ Plan: FU CT ab w/PO contrast Further recs as per imaging findings/attending [facility] attending Nora, PGY-1 - Date & Time Date: 03/04/17 Time: 17:45
[2017-03-04] MEDS: Dextrose 5%/0.9% NS 1,000 ML IV SCH (20:27)
--- NOTE | 2017-03-05 07:43 | CP.PCM.PN ---
Subjective - Date & Time of Evaluation Date of Evaluation: 03/05/17 Time of Evaluation: 07:40 - Subjective Subjective: Gen Sx: Dr Charles Pt S&E. NAEO. Reports improvement of dizziness. Tolerating HHD. Had BM. No bloody emesis or bowel movement. Unclear how many units pRBC pt has received as I cannot find a record in the chart. HgB increasing however. Repeat CT appears more like "cystic mass of the stomach" is actually just another of the many cysts identified on the patients liver, that particular one is just within the left lobe abutting the greater curvature. Will follow up official read. Objective - Vital Signs/Intake and Output Vital Signs (last 24 hours): Temp Pulse Resp BP Pulse Ox 97.9 F 67 18 121/61 97 03/04/17 23:22 03/04/17 23:40 03/04/17 23:22 03/04/17 23:22 03/04/17 23:22 Intake and Output: 03/05/17 03/05/17 06:59 18:59 Intake Total 1300 Output Total 900 Balance 400 - Medications Medications: Current Medications Cyanocobalamin (Vitamin B12 1000 Mcg/Ml Inj) 1,000 mcg IM DAILY [facility] Stop: 03/06/17 23:59 Last Admin: 03/04/17 09:15 Dose: 1,000 mcg Folic Acid (Folic Acid) 1 mg PO DAILY [facility] Last Admin: 03/04/17 09:15 Dose: 1 mg Pantoprazole Sodium (Protonix Ec Tab) 40 mg PO DAILY [facility] Last Admin: 03/04/17 09:15 Dose: 40 mg - Labs Labs: 03/04/17 08:15 03/04/17 08:15 PT 13.4 SECONDS (9.7-12.2) H 03/02/17 07:17 INR 1.2 03/02/17 07:17 APTT 31 SECONDS (21-34) 03/02/17 07:17 - Constitutional Appears: Non-toxic, No Acute Distress - ENT Exam ENT Exam: Mucous Membranes Moist - Respiratory Exam Respiratory Exam: absent: Respiratory Distress - Cardiovascular Exam Cardiovascular Exam: REGULAR RHYTHM - GI/Abdominal Exam GI & Abdominal Exam: Soft. absent: Distended, Firm, Guarding, Tenderness - Neurological Exam Neurological Exam: Alert, Awake, Oriented x3 Assessment and Plan - Assessment and Plan (Free Text) Assessment: 77M with anemia from unknown etiology; ? of gastric mass Plan: CT appears as though lesions are in the liver not stomach official read pending if concerned for stomach lesion should consider EGD/EUS and potential biopsy pending nature of cyst Would consider r/o polycystic liver disease as reason for CT findings and potential anemia will d/w Dr Melvin Shields, PGY3
[2017-03-05 08:41] LABS: EOS # 0.1 K/uL (0.0-0.7); MONO # 0.2 K/uL (0.0-0.8); WHITE BLOOD COUNT 2.8 K/uL (4.8-10.8)
[2017-03-05 08:51] LABS: BASO % 0.5 % (0.0-2.0); EOS % 3.4 % (0.0-4.0); HEMATOCRIT 26.1 % (35.0-51.0); LYMPH # 1.5 K/uL (1.0-4.3); LYMPH % 51.7 % (20.0-40.0); MEAN CELL VOLUME 92.9 fL (80.0-94.0); MEAN CORPUSCULAR HEMOGLOBIN 33.4 pg (27.0-31.0); MEAN CORPUSCULAR HGB CONC 35.9 g/dL (33.0-37.0); MEAN PLATELET VOLUME 9.8 fL (7.2-11.7); MONO % 8.4 % (0.0-10.0); NRBC % 0.1 % (0.0-2.0); RED CELL DISTRIBUTION WIDTH 19.4 % (11.5-14.5)
[2017-03-05 09:07] LABS: ALB/GLOB RATIO 1.1 (1.0-2.1); ALKALINE PHOSPHATASE 54 U/L (38-126); ALT/SGPT 27 U/L (21-72); AST/SGOT 33 U/L (17-59); BILIRUBIN,TOTAL 1.2 mg/dL (0.2-1.3); BLOOD UREA NITROGEN 7 mg/dL (9-20); CALCIUM 8.2 mg/dl (8.6-10.4); CARBON DIOXIDE 29 mmol/L (22-30); CHLORIDE 100 mmol/L (98-107); GFR AFRICAN-AMERICAN > 60; GLUCOSE,RANDOM 88 mg/dL (75-110); SODIUM 131 mmol/L (132-148); TOTAL PROTEIN 6.2 g/dL (6.3-8.3)
[2017-03-05] MEDS: Pantoprazole 40 mg EC Tab PO SCH (09:16)
--- NOTE | 2017-03-05 10:37 | CP.PCM.PN ---
<Steve Lind - Last Filed: 03/05/17 10:30> Subjective - Date & Time of Evaluation Date of Evaluation: 03/05/17 Time of Evaluation: 10:30 - Subjective Subjective: Progress note for Dr Forbes's Service Pt was seen and examined at [facility]. No acute event overnight noted. Patient denies chest pain, abdominal pain, fevers, chills, nausea, vomiting, diarrhea, shortness of breath. He was seen by surgery and has gotten a CT of his abdomen. We are awaiting the results of this CT to determine our strategy moving forward with intervention: surgery vs GI. Objective - Vital Signs/Intake and Output Vital Signs (last 24 hours): Temp Pulse Resp BP Pulse Ox 98 F 75 20 122/48 L 98 03/05/17 07:44 03/05/17 08:30 03/05/17 07:44 03/05/17 07:44 03/05/17 07:44 Intake and Output: 03/05/17 03/05/17 06:59 18:59 Intake Total 1300 Output Total 900 Balance 400 - Medications Medications: Current Medications Cyanocobalamin (Vitamin B12 1000 Mcg/Ml Inj) 1,000 mcg IM DAILY [facility] Stop: 03/06/17 23:59 Last Admin: 03/05/17 09:16 Dose: 1,000 mcg Folic Acid (Folic Acid) 1 mg PO DAILY [facility] Last Admin: 03/05/17 09:16 Dose: 1 mg Pantoprazole Sodium (Protonix Ec Tab) 40 mg PO DAILY [facility] Last Admin: 03/05/17 09:16 Dose: 40 mg - Labs Labs: 03/05/17 08:27 03/05/17 08:27 PT 13.4 SECONDS (9.7-12.2) H 03/02/17 07:17 INR 1.2 03/02/17 07:17 APTT 31 SECONDS (21-34) 03/02/17 07:17 - Constitutional Appears: No Acute Distress - Head Exam Head Exam: ATRAUMATIC, NORMAL INSPECTION - Eye Exam Eye Exam: EOMI, Normal appearance - ENT Exam ENT Exam: Mucous Membranes Moist - Respiratory Exam Respiratory Exam: Clear to Ausculation Bilateral, NORMAL BREATHING PATTERN - Cardiovascular Exam Cardiovascular Exam: REGULAR RHYTHM - GI/Abdominal Exam GI & Abdominal Exam: Soft. absent: Tenderness - Neurological Exam Neurological Exam: Alert, Awake, Oriented x3 - Skin Skin Exam: Dry, Warm Assessment and Plan - Assessment and Plan (Free Text) Plan: Symptomatic Anemia Likely 2/2 to Vitamin B12 deficiency: Elevated MCV, Vitamin B12 <159 (L), elevated LDH Patient denies hx of bleeding; FOBT negative; Denies alcohol use GI consulted, Dr. Raines - per Dr Raines, endoscopic procedures to be done outpatient as pt w/ no signs of active bleeding and anemia is chronic; per Dr Raines patient refused bone marrow biopsy in ED. Heme/Onc consulted, Dr Irwin- recommendations appreciated There is concern for possible GI malignancy which may be precipitating B12 deficiency. This patient will need GI workup and seems unlikely to obtain treatments as an outpatient. Hgb 5.2 on admission, baseline unknown, no prior records in chart Hemoglobin 03/04 9.5 s/p transfusion of 2 units of pRBCs 03/01 s/p transfusion of 2 units of pRBC 03/03 Iron 113, TIBC 202 (L), Ferritin 251, % Saturation 56 (H), Retic Count 2 (H) -Calculated Reticulocyte Index = <2.0 -> signifies hypoproliferation Elevated MCV, Vitamin B12 <159 (L), Folate 5.1, Lactate Dehydrogenase 3569 (H) Haptoglobin <15 (L) Direct Bili 0.5 (H), Total Bili 1.4 (H) Hep panel negative HIV Screen negative CT abd/pelvis with PO contrast 03/01 results shown below Surgery Consulted- recs appreciated FU CT ab w/PO contrast 03/04 Consideration being given to polycystic liver disease Further recs as per imaging findings/attending Consider barium enema of upper GI w/ small bowel follow through F/U parietal cell Ab F/U Flow cytometry Meds: Vitamin B12 1mg IM QD started 03/02 (will con't IM QD for 7 days then PO QWK for 4 weeks then QMonth for life) Dextrose 5% in NS IV @ 80 cc/hr- discontinued-Pt is tolerating his diet without nausea/vomiting Folate 1mg PO QD Near syncope Likely 2/[address] head 03/01: generalized atrophy, non-specific white matter changes Fall precautions Pancytopenia Severe megaloblastic anemia can cause pancytopenia, however must r/o malignancy Decreased appetite; Weight loss of 10kg over last 1 year Heme/Onc consulted, Dr Irwin CT abd/pelvis with PO contrast 03/01: "Multiple hepatic masses/cysts. None of these sampled exceed mean Hounsfield values of 10. Solitary pulmonary nodule 6 mm basilar segment right lower lung lobe. Cystic mass contiguous with perhaps emanating from the greater curvature of the stomach. This measures 3.3 cm. Impression: Indeterminate findings in the left upper quadrant likely cystic mass emanating from the greater curve. Diverticulosis particularly in the descending colon and sigmoid". Serum PEP 03/01: Decrease in albumin. Pattern suggestive of decreased protein synthesis or protein loss. Carcinoembryonic Ag WNL, CA 19-9 Antigen WNL Elevated Prostate Specific Ag UA 03/01: 1+ blood, RBC 6 (H) CT abd/pelvis with PO contrast: enlarged prostate 4.9 x 5.5 cm A transrectal prostate ultrasound was ordered however this could not be done in house (per tech) and will to be done outpatient GI/DVT ppx Protonix 40mg PO daily SCDs Intervention is currently pending results of CT scan completed on 03/04/2017. Surgery has been consulted as well as GI. We will follow up results of the CT and move forward respectively. Case discussed with Dr. Forbes. <Luiz Forbes - Last Filed: 03/05/17 19:20> Objective - Vital Signs/Intake and Output Vital Signs (last 24 hours): Temp Pulse Resp BP Pulse Ox 98.2 F 71 20 127/60 96 03/05/17 15:18 03/05/17 15:18 03/05/17 15:18 03/05/17 15:18 03/05/17 15:18 Intake and Output: 03/05/17 03/06/17 18:59 06:59 Intake Total 400 Balance 400 - Medications Medications: Current Medications Cyanocobalamin (Vitamin B12 1000 Mcg/Ml Inj) 1,000 mcg IM DAILY [facility] Stop: 03/06/17 23:59 Last Admin: 03/05/17 09:16 Dose: 1,000 mcg Folic Acid (Folic Acid) 1 mg PO DAILY [facility] Last Admin: 03/05/17 09:16 Dose: 1 mg Pantoprazole Sodium (Protonix Ec Tab) 40 mg PO DAILY [facility] Last Admin: 03/05/17 09:16 Dose: 40 mg - Labs Labs: 03/05/17 08:27 03/05/17 08:27 PT 13.4 SECONDS (9.7-12.2) H 03/02/17 07:17 INR 1.2 03/02/17 07:17 APTT 31 SECONDS (21-34) 03/02/17 07:17 Attending/Attestation - Attestation I have personally seen and examined this patient.: Yes I have fully participated in the care of the patient.: Yes I have reviewed all pertinent clinical information, including history, physical exam and plan: Yes Notes (Text): Patient was seen and examined,No complain,sitting and eating Discussed with the patients son yesterday.Patient and his son was told about the plan D/W DR Raines.Planning to do EGD and biopsy on Monday D/W DR Guevara. We will do bone scan,MRI brain to r/o mets Has elevated PSA and large prostate.We will get urologist consult 03/05/17 19:20
--- NOTE | 2017-03-05 12:36 | CT ---
PROCEDURE: CT Chest, Abdomen and Pelvis with intravenous contrast HISTORY: CYSTIC GASTRIC MASS,R/O MALIGNANCY COMPARISON: CT abdomen and pelvis from 03/02/2017. TECHNIQUE: I CT scan of the chest, abdomen and pelvis was performed after intravenous administration of contrast. Oral contrast was administered. Coronal and sagittal reformatted images were obtained. V dose administered: 100 mL Omnipaque 240 Radiation dose: Total exam DLP = 407.82 mGy-cm. This CT exam was performed using one or more of the following dose reduction techniques: Automated exposure control, adjustment of the mA and/or kV according to patient size, and/or use of iterative reconstruction technique. FINDINGS: CT CHEST WITH CONTRAST: LUNGS: The lungs are well inflated and there is dependent atelectasis in the posterior lower lobes. No nodule, mass or consolidation. MEDIASTINUM: The heart is normal in size. No pericardial effusion. LYMPH NODES: There are subcentimeter mediastinal lymph nodes. PLEURA: No pneumothorax. No pleural fluid. BONES: There are multilevel osteolytic lesions at the vertebral endplates. OTHER FINDINGS: None. CT ABDOMEN AND PELVIS: LIVER: There is mild hepatomegaly. There are numerous variable- sized low-attenuation fluid density lesions in the liver, the largest in the lateral segment of the left hepatic lobe measures 3.0 x 2.4 cm. GALLBLADDER AND BILE DUCTS: No calcified gallstones. PANCREAS: Normal in size with homogeneous enhancement. No gross lesion or ductal dilatation. SPLEEN: Normal in size and appearance. ADRENALS: No discrete nodule. KIDNEYS AND URETERS: Both kidneys are normal in size and there is homogeneous enhancement without hydronephrosis or solid mass. There are 2 simple cysts in the left kidney. A tiny low-attenuation lesion in the right upper pole is statistically most compatible with a small cortical cyst with VASCULATURE: Early atherosclerotic aortoiliac calcifications. No aortic aneurysm. BOWEL: The stomach is distended with contrast. There is a 3.5 x 3.1 cm hypodense fluid density lesion abutting the greater curvature of the stomach and left hepatic lobe. The small bowel loops are normal in caliber. There is extensive left colonic diverticulosis without CT evidence for acute diverticulitis. No bowel dilatation or obstruction. APPENDIX: Normal appendix. PERITONEUM: No free fluid. No free air. LYMPH NODES: There are mildly prominent subcentimeter mesenteric lymph nodes. BLADDER: Partially decompressed. REPRODUCTIVE: There is severe enlargement of the prostate gland. BONES: No acute fracture. Multilevel degenerative changes. There is an osteolytic lesion in the left posterior acetabulum laterally. OTHER FINDINGS: None. IMPRESSION: 1. 3.5 x 3.1 cm cystic mass abutting the greater curvature of the stomach and left hepatic lobe. The differential considerations include exophytic cyst/ cystic mass arising from the left hepatic lobe or stomach. 2. Multiple cystic lesions in the stomach which may represent simple cysts or cystic metastasis. 3. Multifocal radiolucent lesions at the vertebral endplates of the thoracic vertebral bodies likely represent Schmorl's nodes, the other differential consideration being osteolytic metastasis. Correlation with prior imaging would be helpful to ascertain the stability/acuity of these findings. If no prior imaging studies are available for comparison, short-term interval follow-up or histopathologic/PET correlation would be recommended as clinically indicated.
--- NOTE | 2017-03-06 05:46 | CP.PCM.PN ---
Subjective - Date & Time of Evaluation Date of Evaluation: 03/06/17 Time of Evaluation: 05:45 - Subjective Subjective: General Surgery: Dr Charles Pt S&E. Resting comfortably. Denies pain, nausea or vomiting. Plans for EGD with biopsy monday Objective - Vital Signs/Intake and Output Vital Signs (last 24 hours): Temp Pulse Resp BP Pulse Ox 98.1 F 77 20 139/66 97 03/06/17 01:00 03/06/17 01:00 03/06/17 01:00 03/06/17 01:00 03/06/17 01:00 Intake and Output: 03/05/17 03/06/17 18:59 06:59 Intake Total 400 Balance 400 - Medications Medications: Current Medications Cyanocobalamin (Vitamin B12 1000 Mcg/Ml Inj) 1,000 mcg IM DAILY [facility] Stop: 03/06/17 23:59 Last Admin: 03/05/17 09:16 Dose: 1,000 mcg Folic Acid (Folic Acid) 1 mg PO DAILY [facility] Last Admin: 03/05/17 09:16 Dose: 1 mg Pantoprazole Sodium (Protonix Ec Tab) 40 mg PO DAILY [facility] Last Admin: 03/05/17 09:16 Dose: 40 mg - Labs Labs: 03/05/17 08:27 03/05/17 08:27 PT 13.4 SECONDS (9.7-12.2) H 03/02/17 07:17 INR 1.2 03/02/17 07:17 APTT 31 SECONDS (21-34) 03/02/17 07:17 - Constitutional Appears: Non-toxic, No Acute Distress - ENT Exam ENT Exam: Mucous Membranes Moist - Respiratory Exam Respiratory Exam: absent: Accessory Muscle Use, Respiratory Distress - Cardiovascular Exam Cardiovascular Exam: REGULAR RHYTHM - GI/Abdominal Exam GI & Abdominal Exam: Soft. absent: Distended, Tenderness Assessment and Plan - Assessment and Plan (Free Text) Assessment: 77M with undiagnosed lesions of liver and questionably stomach; anemia work-up in progr will f/u EGD results on monday no immediate surgical intervention planned will d/r Melvin Shields, PGY3
[2017-03-06 07:40] LABS: BASO % 0.3 % (0.0-2.0); EOS # 0.1 K/uL (0.0-0.7); EOS % 2.9 % (0.0-4.0); HEMATOCRIT 24.8 % (35.0-51.0); LYMPH # 1.6 K/uL (1.0-4.3); MEAN CELL VOLUME 94.6 fL (80.0-94.0); MEAN CORPUSCULAR HEMOGLOBIN 33.1 pg (27.0-31.0); MEAN CORPUSCULAR HGB CONC 34.9 g/dL (33.0-37.0); MEAN PLATELET VOLUME 10.8 fL (7.2-11.7); MONO # 0.6 K/uL (0.0-0.8); MONO % 17.7 % (0.0-10.0); NRBC % 0.2 % (0.0-2.0); RED CELL DISTRIBUTION WIDTH 18.8 % (11.5-14.5); WHITE BLOOD COUNT 3.5 K/uL (4.8-10.8)
[2017-03-06 08:25] LABS: ALKALINE PHOSPHATASE 54 U/L (38-126); ALT/SGPT 33 U/L (21-72); AST/SGOT 28 U/L (17-59); BILIRUBIN,TOTAL 0.8 mg/dL (0.2-1.3); BLOOD UREA NITROGEN 10 mg/dL (9-20); CALCIUM 7.8 mg/dl (8.6-10.4); CARBON DIOXIDE 29 mmol/L (22-30); CHLORIDE 98 mmol/L (98-107); GFR AFRICAN-AMERICAN > 60; GLUCOSE,RANDOM 85 mg/dL (75-110); POTASSIUM 3.9 mmol/L (3.6-5.2); SODIUM 129 mmol/L (132-148)
[2017-03-06] MEDS: Pantoprazole 40 mg EC Tab PO SCH (09:42)
--- NOTE | 2017-03-06 13:21 | CP.PCM.PN ---
<Matheus Foster - Last Filed: 03/06/17 17:00> Subjective - Date & Time of Evaluation Date of Evaluation: 03/06/17 Time of Evaluation: 13:21 - Subjective Subjective: PGY1 Medicine Note for Dr. Palmer Patient seen and examined at bedside this morning. Patient states that he is feeling well and he is not in any pain at this time. Patient states he feels well and does not have any complaints at this time. Plan is for EGD with biopsy tomorrow. . Objective - Vital Signs/Intake and Output Vital Signs (last 24 hours): Temp Pulse Resp BP Pulse Ox 97.9 F 71 20 127/56 L 95 03/06/17 08:03 03/06/17 08:03 03/06/17 08:03 03/06/17 08:03 03/06/17 08:03 - Medications Medications: Current Medications Cyanocobalamin (Vitamin B12 1000 Mcg/Ml Inj) 1,000 mcg IM DAILY [facility] Stop: 03/06/17 23:59 Last Admin: 03/06/17 09:42 Dose: 1,000 mcg Folic Acid (Folic Acid) 1 mg PO DAILY [facility] Last Admin: 03/06/17 09:42 Dose: 1 mg Pantoprazole Sodium (Protonix Ec Tab) 40 mg PO DAILY [facility] Last Admin: 03/06/17 09:42 Dose: 40 mg - Labs Labs: 03/06/17 07:18 03/06/17 07:18 PT 13.4 SECONDS (9.7-12.2) H 03/02/17 07:17 INR 1.2 03/02/17 07:17 APTT 31 SECONDS (21-34) 03/02/17 07:17 - Constitutional Appears: Non-toxic, No Acute Distress - Head Exam Head Exam: ATRAUMATIC, NORMOCEPHALIC - Eye Exam Eye Exam: EOMI, Normal appearance - ENT Exam ENT Exam: Mucous Membranes Moist - Respiratory Exam Respiratory Exam: Clear to Ausculation Bilateral, NORMAL BREATHING PATTERN. absent: Accessory Muscle Use, Rales, Rhonchi, Wheezes, Respiratory Distress - Cardiovascular Exam Cardiovascular Exam: REGULAR RHYTHM, +S1, +S2 - GI/Abdominal Exam GI & Abdominal Exam: Soft, Normal Bowel Sounds. absent: Distended, Firm, Guarding, Rigid, Tenderness - Extremities Exam Extremities Exam: Normal Inspection. absent: Calf Tenderness, Pedal Edema - Neurological Exam Neurological Exam: Alert, Awake, Oriented x3 - Psychiatric Exam Psychiatric exam: Normal Affect, Normal Mood - Skin Skin Exam: Dry, Warm Assessment and Plan - Assessment and Plan (Free Text) Plan: Symptomatic Anemia Likely 2/2 to Vitamin B12 deficiency: Elevated MCV, Vitamin B12 <159 (L), elevated LDH Patient denies hx of bleeding; FOBT negative; Denies alcohol use GI consulted, Dr. Raines - per Dr Raines, endoscopic procedures to be done outpatient as pt w/ no signs of active bleeding and anemia is chronic; per Dr Raines patient refused bone marrow biopsy in ED. Heme/Onc consulted, Dr Irwin- recommendations appreciated There is concern for possible GI malignancy which may be precipitating B12 deficiency. This patient will need GI workup and seems unlikely to obtain treatments as an outpatient. Hgb 5.2 on admission, baseline unknown, no prior records in chart Hemoglobin 03/06 - 8.6, continue to monitor s/p transfusion of 2 units of pRBCs 03/01 s/p transfusion of 2 units of pRBC 03/0303/01/17: Iron 113, TIBC 202 (L), Ferritin 251, % Saturation 56 (H), Retic Count 2 (H) -Calculated Reticulocyte Index = <2.0 -> signifies hypoproliferation Elevated MCV, Vitamin B12 <159 (L), Folate 5.1, Lactate Dehydrogenase 3569 (H) Haptoglobin 03/01: <15 (L) Total Bili 0.8 Hep panel negative HIV Screen negative CT abd/pelvis with PO contrast 03/01 - Correlation with prior imaging would be helpful to ascertain the stability/acuity of these findings. If no prior imaging studies are available for comparison, short-term interval follow-up or histopathologic/PET correlation would be recommended as clinically indicated Consideration being given to polycystic liver disease Further recs as per imaging findings/attending CT ab w/PO contrast 03/04 - 1. 3.5 x 3.1 cm cystic mass abutting the greater curvature of the stomach and left hepatic lobe. The differential considerations include exophytic cyst/ cystic mass arising from the left hepatic lobe or stomach. 2. Multiple cystic lesions in the stomach which may represent simple cysts or cystic metastasis. 3. Multifocal radiolucent lesions at the vertebral endplates of the thoracic vertebral bodies likely represent Schmorl's nodes, the other differential consideration being osteolytic metastasis. Bone Scan 03/06 - No evidence of bony metastatic disease. f/u Surgery recs - No surgical intervention at this time. f/u GI recs - scheduled for EGD tomorrow morning. f/u Heme/Onc recs Consider barium enema of upper GI w/ small bowel follow through F/U parietal cell Ab F/U Flow cytometry Meds: Vitamin B12 1mg IM QD started 03/02 (will con't IM QD for 7 days then PO QWK for 4 weeks then QMonth for life) Folate 1mg PO QD Near syncope Likely 2/[address] head 03/01: generalized atrophy, non-specific white matter changes Fall precautions Pancytopenia Severe megaloblastic anemia can cause pancytopenia, however must r/o malignancy Decreased appetite; Weight loss of 10kg over last 1 year Heme/Onc consulted, Dr Irwin CT abd/pelvis with PO contrast 03/01: "Multiple hepatic masses/cysts. None of these sampled exceed mean Hounsfield values of 10. Solitary pulmonary nodule 6 mm basilar segment right lower lung lobe. Cystic mass contiguous with perhaps emanating from the greater curvature of the stomach. This measures 3.3 cm. Impression: Indeterminate findings in the left upper quadrant likely cystic mass emanating from the greater curve. Diverticulosis particularly in the descending colon and sigmoid". Serum PEP 03/01: Decrease in albumin. Pattern suggestive of decreased protein synthesis or protein loss. Carcinoembryonic Ag 1.2, CA 19-9 Antigen 9.6 Elevated Prostate Specific Ag Prostate Specific Ag 4.56 (H) UA 03/01: 1+ blood, RBC 6 (H) CT abd/pelvis with PO contrast: enlarged prostate 4.9 x 5.5 cm A transrectal prostate ultrasound was ordered however this could not be done in house (per tech) and will to be done outpatient GI/DVT ppx Protonix 40mg PO daily SCDs Case discussed with Dr. Estela Foster PGY1 <Anabela Palmer V - Last Filed: 03/06/17 20:49> Objective - Vital Signs/Intake and Output Vital Signs (last 24 hours): Temp Pulse Resp BP Pulse Ox 97.9 F 65 20 117/62 96 03/06/17 15:35 03/06/17 19:03 03/06/17 15:35 03/06/17 15:35 03/06/17 15:35 Intake and Output: 03/06/17 03/07/17 18:59 06:59 Intake Total 300 Balance 300 - Medications Medications: Current Medications Cyanocobalamin (Vitamin B12 1000 Mcg/Ml Inj) 1,000 mcg IM DAILY [facility] Stop: 03/06/17 23:59 Last Admin: 03/06/17 09:42 Dose: 1,000 mcg Folic Acid (Folic Acid) 1 mg PO DAILY [facility] Last Admin: 03/06/17 09:42 Dose: 1 mg Pantoprazole Sodium (Protonix Ec Tab) 40 mg PO DAILY [facility] Last Admin: 03/06/17 09:42 Dose: 40 mg - Labs Labs: 03/06/17 07:18 03/06/17 07:18 PT 13.4 SECONDS (9.7-12.2) H 03/02/17 07:17 INR 1.2 03/02/17 07:17 APTT 31 SECONDS (21-34) 03/02/17 07:17 Attending/Attestation - Attestation I have personally seen and examined this patient.: Yes I have fully participated in the care of the patient.: Yes I have reviewed all pertinent clinical information, including history, physical exam and plan: Yes Notes (Text): Patient seen, examined, case discussed with daytime resident. This is my first time seeing the patient. Patient was admitted for pancytopenia. Hematologic and GI workup underway. There is concern for malignancy. However without biopsy unable to start treatment. Patient has completed bone scan. Results are negative for any metastases. I called him on hematology as well as resident had to update him however have not received a call back. I have called GI to confirm EGD with biopsy for tomorrow have not received a call back Patient with very low B12 deficiency. Patient requiring B12 daily injection shots. Which may be associated with malignancy. Patient was severely anemic on admission and has required blood transfusions during hospitalization. Patient's retake count index is also low signifying that the bone marrow is unable to produce adequate cells. HIV panel is negative hepatitis is negative Patient has completed pain scan of CAT scan with abnormality noted for possible cystic mass over the greater curvature of the stomach and left hepatic lobe. Patient is awaiting brain MRI per heme onc. She is awaiting for barium swallow and small bowel follow-through series. Patient is awaiting potential EGD with biopsy. Patient is off anticoagulation secondary to pancytopenia. Patient seen and examined and case discussed with daytime resident. Patient was seen with his son and [id number] and at bedside. Patient has elevated PSA. Unclear what prior PSA if he's had to consider expects exponential rise or not. Pending urologic evaluation. Patient care to be resumed by colleague tomorrow.
--- NOTE | 2017-03-06 15:08 | NM ---
PROCEDURE: Whole Body Bone Scan HISTORY: r/o mets COMPARISON: 03/04/2017 CT chest abdomen and pelvis TECHNIQUE: Following administration of miCu of Tc MDP multiplanar whole body images were obtained. FINDINGS: Evidence for bony metastatic disease: None. Degenerative uptake: None. Physiologic uptake: Normal physiologic activity in the kidneys. Other findings: None. IMPRESSION: No evidence of bony metastatic disease.
[2017-03-07 07:39] LABS: BASO % 0.2 % (0.0-2.0); EOS # 0.1 K/uL (0.0-0.7); EOS % 3.8 % (0.0-4.0); LYMPH # 1.3 K/uL (1.0-4.3); MEAN CORPUSCULAR HEMOGLOBIN 33.2 pg (27.0-31.0); NRBC % 0.3 % (0.0-2.0)
[2017-03-07 07:46] LABS: HEMATOCRIT 26.1 % (35.0-51.0); LYMPH % 34.1 % (20.0-40.0); MEAN CELL VOLUME 94.8 fL (80.0-94.0); MEAN CORPUSCULAR HGB CONC 35.1 g/dL (33.0-37.0); MEAN PLATELET VOLUME 9.9 fL (7.2-11.7); MONO % 25.2 % (0.0-10.0); WHITE BLOOD COUNT 3.9 K/uL (4.8-10.8)
[2017-03-07 07:56] LABS: PLATELET COUNT 35 K/uL (130-400)
[2017-03-07] MEDS ORDERED: Propofol 10 mg/ml Inj (20 ML) ONE ×2 (08:33→08:50)
[2017-03-07 08:35] LABS: ALKALINE PHOSPHATASE 59 U/L (38-126); ALT/SGPT 33 U/L (21-72); AST/SGOT 28 U/L (17-59); BILIRUBIN,TOTAL 0.8 mg/dL (0.2-1.3); BLOOD UREA NITROGEN 13 mg/dL (9-20); CALCIUM 7.9 mg/dl (8.6-10.4); CARBON DIOXIDE 30 mmol/L (22-30); CHLORIDE 98 mmol/L (98-107); GFR AFRICAN-AMERICAN > 60; GLUCOSE,RANDOM 88 mg/dL (75-110); PHOSPHOROUS 4.5 mg/dL (2.5-4.5); POTASSIUM 4.4 mmol/L (3.6-5.2); SODIUM 131 mmol/L (132-148); TOTAL PROTEIN 6.3 g/dL (6.3-8.3)
[2017-03-07 08:38] LABS: EOSINOPHIL 2 % (0-4); NEUTROPHIL 35 % (50-75); NUCLEATED RED BLOOD CELL 1 % (0-0); TOTAL CELLS COUNTED 100
[2017-03-07] MEDS ORDERED: Phenylephrine 10 mg/ml Inj ONE (08:50)
[2017-03-07] MEDS ORDERED: ePHEDrine 50 mg/ml Inj ONE (09:01)
--- NOTE | 2017-03-07 09:15 | CP.PCM.PN ---
<Gianni Pate - Last Filed: 03/07/17 16:20> Subjective - Date & Time of Evaluation Date of Evaluation: 03/07/17 Time of Evaluation: 08:36 - Subjective Subjective: PGY-[address] Harris. No acute events overnight noted. Patient asymptomatic. Patient denies chest pain , abdominal pain, shortness of breath, nausea, vomiting, fever, chills, diarrhea. Objective - Vital Signs/Intake and Output Vital Signs (last 24 hours): Temp Pulse Resp BP Pulse Ox 98.1 F 63 20 111/62 96 03/07/17 08:31 03/07/17 08:31 03/07/17 08:31 03/07/17 08:31 03/07/17 08:31 Intake and Output: 03/07/17 03/07/17 06:59 18:59 Intake Total 420 0 Balance 420 0 - Medications Medications: Current Medications Folic Acid (Folic Acid) 1 mg PO DAILY [facility] Last Admin: 03/06/17 09:42 Dose: 1 mg Pantoprazole Sodium (Protonix Ec Tab) 40 mg PO DAILY [facility] Last Admin: 03/06/17 09:42 Dose: 40 mg - Labs Labs: 03/07/17 07:17 03/07/17 07:17 PT 13.4 SECONDS (9.7-12.2) H 03/02/17 07:17 INR 1.2 03/02/17 07:17 APTT 31 SECONDS (21-34) 03/02/17 07:17 - Additional Findings Additional findings: - Constitutional Appears: Non-toxic, No Acute Distress - Head Exam Head Exam: ATRAUMATIC, NORMOCEPHALIC - Eye Exam Eye Exam: EOMI, Normal appearance - ENT Exam ENT Exam: Mucous Membranes Moist - Respiratory Exam Respiratory Exam: Clear to Ausculation Bilateral, NORMAL BREATHING PATTERN. absent: Accessory Muscle Use, Rales, Rhonchi, Wheezes, Respiratory Distress - Cardiovascular Exam Cardiovascular Exam: REGULAR RHYTHM, +S1, +S2 - GI/Abdominal Exam GI & Abdominal Exam: Soft, Normal Bowel Sounds. absent: Distended, Firm, Guarding, Rigid, Tenderness - Extremities Exam Extremities Exam: Normal Inspection. 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 Raines, Recommendations appreciated * S/P EGD w/ biopsy 03/07 - post-op diagnosis: Small hiatus hernia; erythematous mucosa in the antrum, normal duodenum, no specimens collected Heme/Onc consulted, Dr Irwin, Recommendations appreciated * There is concern for possible GI malignancy which may be precipitating B12 deficiency. This patient will need GI workup and seems unlikely to obtain treatments as an outpatient. Per Dr Irwin patient refused bone marrow biopsy in ED. Iron 113, TIBC 202 (L), Ferritin 251, % Saturation 56 (H), Retic Count 2 (H) -Calculated Reticulocyte Index = <2.0 -> signifies hypoproliferation Elevated MCV, Vitamin B12 <159 (L), Folate 5.1, Lactate Dehydrogenase 3569 (H) Haptoglobin <15 (L), Direct Bili 0.5 (H), Total Bili 1.4 (H) Hep panel negative, HIV Screen negative Smear Path Review 03/03: (1) Severe neutropenia (2) No increase in blasts (3) Thrombocytopenia (4) Red cell morphology: Teardrop cells, elliptocytes, microcytes and spherocytes. Serum PEP 03/01: Decrease in albumin. Pattern suggestive of decreased protein synthesis or protein loss. 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 None of these sampled exceed mean Hounsfield values of 10. Solitary pulmonary nodule 6 mm basilar segment right lower lung lobe. Cystic mass contiguous with perhaps emanating from the greater curvature of the stomach. This measures 3.3 cm. Impression: Indeterminate findings in the left upper quadrant likely cystic mass emanating from the greater curve. Diverticulosis particularly in the descending colon and sigmoid". Bone Scan 03/06: No evidence of bony metastatic disease. Brain MRI w/ and w/o contrast 03/07: "Reiteration of age related neuro degenerative changes is encountered primarily throughout the cerebrum. No abnormal intra or extra-axial enhancement identified throughout the brain" Meds: Vitamin B12 1mg IM QD started 03/02 (will con't IM QD for 7 days then PO QWK for 4 weeks then QMonth for life) Dextrose 5% in NS IV @ 80 cc/hr- discontinued-Pt is tolerating his diet without nausea/vomiting Folate 1mg PO QD Questionable Cystic Mass - Greater Curvature of Stomach Surgery consult, Dr Charles * S/P EGD w/ biopsy 03/07 - post-op diagnosis: Small hiatus hernia; erythematous mucosa in the antrum, normal duodenum, no specimens collected * Carafate 1g PO QID started 03/07, continue for 8 weeks * Follow up as an outpatient. Consideration being given to polycystic liver disease CT abd/pelvis with PO contrast 03/01: Cystic mass contiguous with perhaps emanating from the greater curvature of the stomach. This measures 3.[address] chest/abd/pelvis w/ IV contrast 03/04: (1) 3.5 x 3.1 cm cystic mass abutting the greater curvature of the stomach and left hepatic lobe. The differential considerations include exophytic cyst/ cystic mass arising from the left hepatic lobe or stomach. (2) Multiple cystic lesions in the stomach which may represent simple cysts or cystic metastasis. F/U Barium Enema single contrast F/U GI series w/ small bowel Elevated Prostate Specific Ag Urology consult, Dr Colten Greer UA 03/01: 1+ blood, RBC 6 (H) CT abd/pelvis with PO contrast: enlarged prostate 4.9 x 5.5 cm A transrectal prostate ultrasound was ordered however this could not be done in house (per tech) and will to be done outpatient Schmorl's Nodes CT chest/abd/pelvis w/ IV contrast 03/04: No acute fracture. Multilevel degenerative changes. There is an osteolytic lesion in the left posterior acetabulum laterally. Multifocal radiolucent lesions at the vertebral endplates of the thoracic vertebral bodies likely represent Schmorl's nodes, the other differential consideration being osteolytic metastasis. Bone Scan 03/06: No evidence of bony metastatic disease. Near syncope, Resolved Likely 2/[address] head 03/01: generalized atrophy, non-specific white matter changes Fall precautions GI/DVT ppx Protonix 40mg PO daily SCDs Case discussed with Dr. Harris. <Chava Harris - Last Filed: 03/08/17 07:55> Objective - Vital Signs/Intake and Output Vital Signs (last 24 hours): Temp Pulse Resp BP Pulse Ox 98.1 F 70 20 105/58 L 99 03/08/17 00:01 03/08/17 00:01 03/08/17 00:01 03/08/17 00:01 03/08/17 00:01 Intake and Output: 03/08/17 03/08/17 06:59 18:59 Intake Total 600 Balance 600 - Medications Medications: Current Medications Folic Acid (Folic Acid) 1 mg PO DAILY [facility] Last Admin: 03/07/17 09:36 Dose: 1 mg Pantoprazole Sodium (Protonix Ec Tab) 40 mg PO DAILY [facility] Last Admin: 03/07/17 09:36 Dose: 40 mg Sodium Phosphate (Fleet Enema) 135 ml [place] ONCE ONE Stop: 03/08/17 08:01 Sucralfate (Carafate Tab) 1 gm PO QID [facility] Last Admin: 03/07/17 21:34 Dose: 1 gm - Labs Labs: 03/08/17 07:02 03/07/17 07:17 PT 13.4 SECONDS (9.7-12.2) H 03/02/17 07:17 INR 1.2 03/02/17 07:17 APTT 31 SECONDS (21-34) 03/02/17 07:17 Attending/Attestation - Attestation I have personally seen and examined this patient.: Yes I have fully participated in the care of the patient.: Yes I have reviewed all pertinent clinical information, including history, physical exam and plan: Yes Notes (Text): 03/08/17 07:55 Medical attending: Patient was seen and examined, agree with the above note by durable medical equipment technician. The patient was sitting up out of bed, he reported that he is feeling okay. He earlier in the morning underwent EGD. The previous weeks team has been concerned about potential for a gastric cancer. When he initially was admitted he had a very low hemoglobin and also platelet counts. Later on the results of the EGD did return and this was benign did not have any masses in the esophagus , stomach, duodenal area. Patient also had returned positive antiparietal cell antibodies, as well as high proximal antibody titers. Per review of last week's notes he did come in with the very elevated MCV. He also had a decreased B12 level. He had already been given IM B12 shots. He also had a bone scan done which showed no metastatic disease, and he had MRI the brain as well which appears to be benign and did not show any areas of potential metastasis. So the only thing he has not had done so far is a bone marrow biopsy and from what I understand the patient refused this earlier when it was offered to him. At this moment it sounds as if his pancytopenia is related to probably be doing nutritional absorption problem of B12 as opposed to malignancy but will have to see Thank you very much, Chava Harris
[2017-03-07] MEDS ORDERED: Magnesium Citrate Oral SOL (300 ml) PO ONE ×2 (09:16→17:00)
[2017-03-07] MEDS: Pantoprazole 40 mg EC Tab PO SCH (09:36)
--- NOTE | 2017-03-07 10:11 | CP.PCM.PN ---
Subjective - Date & Time of Evaluation Date of Evaluation: 03/07/17 Time of Evaluation: 07:00 - Subjective Subjective: Surgical Progress Note: Patient was seen and examined at bedside in the AM. Patient denies pain, nausea , vomiting, diarrhea or constipation. Patient states his last bowel movement was last night. He denies any medical problems but does state he was told he lost 10kg in the past 3 months but states he has been eating normally. Objective - Vital Signs/Intake and Output Vital Signs (last 24 hours): Temp Pulse Resp BP Pulse Ox 97.8 F 73 16 106/55 L 100 03/07/17 08:45 03/07/17 09:15 03/07/17 09:15 03/07/17 09:15 03/07/17 09:15 Intake and Output: 03/07/17 03/07/17 06:59 18:59 Intake Total 420 200 Balance 420 200 - Medications Medications: Current Medications Folic Acid (Folic Acid) 1 mg PO DAILY [facility] Last Admin: 03/07/17 09:36 Dose: 1 mg Pantoprazole Sodium (Protonix Ec Tab) 40 mg PO DAILY [facility] Last Admin: 03/07/17 09:36 Dose: 40 mg - Labs Labs: 03/07/17 07:17 03/07/17 07:17 PT 13.4 SECONDS (9.7-12.2) H 03/02/17 07:17 INR 1.2 03/02/17 07:17 APTT 31 SECONDS (21-34) 03/02/17 07:17 - Constitutional Appears: No Acute Distress - Head Exam Head Exam: ATRAUMATIC, NORMAL INSPECTION - Eye Exam Eye Exam: EOMI, Normal appearance - ENT Exam ENT Exam: Mucous Membranes Moist - Respiratory Exam Respiratory Exam: Clear to Ausculation Bilateral, NORMAL BREATHING PATTERN - Cardiovascular Exam Cardiovascular Exam: REGULAR RHYTHM, +S1, +S2 - GI/Abdominal Exam GI & Abdominal Exam: Soft, Normal Bowel Sounds. absent: Tenderness - Neurological Exam Neurological Exam: Alert, Awake, Oriented x3 - Skin Skin Exam: Dry, Normal Color, Warm Assessment and Plan - Assessment and Plan (Free Text) Assessment: 77M with undiagnosed lesions of liver and questionably stomach; anemia work-up in progress EGD (03/07): Small hiatus hernia; erythematous mucosa in the antrum, normal duodenum, no specimens collected. Follow up as an outpatient. No surgical intervention planned at this time. [place] PGY-1
[2017-03-07] MEDS ORDERED: Gadodiamide 287 MG/ML VIAL (15ML) IV ONE (12:09)
--- NOTE | 2017-03-07 13:28 | MRI ---
PROCEDURE: MRI BRAIN WITH AND WITHOUT CONTRAST HISTORY: r/o brain mets COMPARISON: Unenhanced head CT 03/01/2017. TECHNIQUE: Multiplanar, multisequence MR images of the brain were obtained with and without intravenous contrast enhancement. FINDINGS: HEMORRHAGE: None DWI: No evidence of an acute or early subacute infarction. BRAIN PARENCHYMA: Good corticomedullary differentiation is seen. Diffuse expansion of the ventriculosulcal and cisternal spaces is appreciated with white matter lucency compatible with diffuse cerebral atrophy and chronic microangiopathy. No suspicious extra-axial fluid collection is identified and the midline brain anatomy appears grossly nonfocal as imaged. ENHANCEMENT: No abnormal intracranial enhancement. VENTRICLES: Unremarkable. No hydrocephalus. CRANIUM: Unremarkable. ORBITS: Grossly unremarkable. PARANASAL SINUSES/MASTOIDS: Mucosal changes are identified on the bilateral ethmoid air cells suggestive of limited sinusitis. Air-fluid level is minimal at the left maxillary sinus compatible with limited sinusitis. VASCULAR SYSTEM: Skull base flow voids intact. OTHER FINDINGS: None . IMPRESSION: Reiteration of age related neuro degenerative changes is encountered primarily throughout the cerebrum. No abnormal intra or extra-axial enhancement identified throughout the brain. Incidental limited sinus disease as discussed above.
--- NOTE | 2017-03-07 14:55 | PCM.URO ---
Urology Progress Note - Objective Lab Studies: Reviewed (thanks for gu consult plans to be discussed) Lab Results Last 24 Hours: Laboratory Results - last 24 hr 03/07/17 03/07/17 07:17 07:17 WBC 3.9 L RBC 2.75 L Hgb 9.1 L Hct 26.1 L MCV 94.8 H MCH 33.2 H MCHC 35.1 RDW 19.0 H Plt Count 35 L MPV 9.9 Neut % (Auto) 36.7 L Lymph % (Auto) 34.1 [place] % (Auto) 25.2 H Eos % (Auto) 3.8 Baso % (Auto) 0.2 Neut # 1.4 L Lymph # 1.3 [place] # 1.0 H Eos # 0.1 Baso # 0.0 Neutrophils % (Manual) 35 L Lymphocytes % (Manual) 32 Monocytes % (Manual) 31 H Eosinophils % (Manual) 2 Nucleated RBC % 1 H Platelet Estimate Decreased L Hypochromasia (manual) Slight Poikilocytosis (manual Slight Anisocytosis (manual) Slight Microcytosis (manual) Slight Macrocytosis (manual) Slight Target Cells Slight Tear Drop Cells Slight Ovalocytes Slight Sodium 131 L Potassium 4.4 Chloride 98 Carbon Dioxide 30 Anion Gap 8 L BUN 13 Creatinine 0.8 Est GFR ( Amer) > 60 Est GFR (Non-Af Amer) > 60 Random Glucose 88 Calcium 7.9 L Phosphorus 4.5 Magnesium 2.0 Total Bilirubin 0.8 AST 28 ALT 33 Alkaline Phosphatase 59 Total Protein 6.3 Albumin 3.2 L Globulin 3.1 Albumin/Globulin Ratio 1.0 Intake & Output: Intake & Output 03/06/17 03/07/17 03/07/17 18:59 06:59 18:59 Intake Total 420 200 Balance 420 200 Weight 117 lb 9.6 oz Intake: IV 200 Oral 120 Tube Feeding 300 Other: # Voids Urine, Voided 2 Vital Signs: Vital Signs - 24 hr 03/06/17 03/06/17 03/06/17 15:35 19:03 22:00 Temperature 97.9 F Pulse Rate 67 65 65 Respiratory 20 Rate Blood Pressure 117/62 110/70 O2 Sat by Pulse 96 Oximetry 03/07/17 03/07/17 03/07/17 00:23 00:26 04:11 Temperature 98.4 F Pulse Rate 69 69 72 Respiratory 20 Rate Blood Pressure 104/71 O2 Sat by Pulse 99 Oximetry 03/07/17 03/07/17 03/07/17 07:00 07:15 08:31 Temperature 98.1 F 98.1 F Pulse Rate 69 63 63 Respiratory 20 20 Rate Blood Pressure 111/62 111/62 O2 Sat by Pulse 96 96 Oximetry 03/07/17 03/07/17 03/07/17 08:45 09:00 09:15 Temperature 97.8 F Pulse Rate 76 65 73 Respiratory 18 15 16 Rate Blood Pressure 98/53 L 117/56 L 106/55 L O2 Sat by Pulse 99 100 100 Oximetry
[2017-03-07 15:43] VITALS: RESP 20
[2017-03-07 15:55] LABS: PARIETAL CELL AB SCREEN Positive (Negative)
--- NOTE | 2017-03-07 22:24 | CARD ---
APPROVED REPORT EKG Measurement Heart [id number] <Conclusion> Normal sinus rhythm Normal ECG
[2017-03-08 07:12] LABS: BASO % 0.3 % (0.0-2.0); EOS # 0.1 K/uL (0.0-0.7); EOS % 4.3 % (0.0-4.0); HEMATOCRIT 24.4 % (35.0-51.0); LYMPH # 1.3 K/uL (1.0-4.3); LYMPH % 37.5 % (20.0-40.0); MEAN CELL VOLUME 95.4 fL (80.0-94.0); MEAN CORPUSCULAR HEMOGLOBIN 32.3 pg (27.0-31.0); MEAN CORPUSCULAR HGB CONC 33.8 g/dL (33.0-37.0); MEAN PLATELET VOLUME 10.8 fL (7.2-11.7); MONO % 28.5 % (0.0-10.0); NRBC % 0.2 % (0.0-2.0); PLATELET COUNT 46 K/uL (130-400); RED CELL DISTRIBUTION WIDTH 18.6 % (11.5-14.5); WHITE BLOOD COUNT 3.4 K/uL (4.8-10.8)
[2017-03-08 08:07] VITALS: BP 110/58; PULSE 67; TEMP 98; O2SAT 97
[2017-03-08 08:14] LABS: ALKALINE PHOSPHATASE 50 U/L (38-126); ALT/SGPT 32 U/L (21-72); AST/SGOT 27 U/L (17-59); BLOOD UREA NITROGEN 10 mg/dL (9-20); CALCIUM 7.9 mg/dl (8.6-10.4); CARBON DIOXIDE 30 mmol/L (22-30); CHLORIDE 99 mmol/L (98-107); GFR AFRICAN-AMERICAN > 60; GLUCOSE,RANDOM 85 mg/dL (75-110); MAGNESIUM 2.3 mg/dL (1.6-2.3); PHOSPHOROUS 3.8 mg/dL (2.5-4.5); POTASSIUM 4.1 mmol/L (3.6-5.2); SODIUM 131 mmol/L (132-148); TOTAL PROTEIN 6.3 g/dL (6.3-8.3)
[2017-03-08 08:29] LABS: EOSINOPHIL 4 % (0-4); NEUTROPHIL 33 % (50-75); REACTIVE LYMPHOCYTES 1 % (0-0); TOTAL CELLS COUNTED 100
--- NOTE | 2017-03-08 09:13 | CP.PCM.PN ---
Subjective - Date & Time of Evaluation Date of Evaluation: 03/08/17 Time of Evaluation: 07:00 - Subjective Subjective: Surgical Progress Note: Patient was seen and examined at bedside in the AM. Patient denies pain, fever , shortness of breath, chest pain, nausea, vomiting, dysuria, diarrhea or constipation. Objective - Vital Signs/Intake and Output Vital Signs (last 24 hours): Temp Pulse Resp BP Pulse Ox 98.0 F 67 20 110/58 L 97 03/08/17 08:06 03/08/17 08:06 03/08/17 08:06 03/08/17 08:06 03/08/17 08:06 Intake and Output: 03/08/17 03/08/17 06:59 18:59 Intake Total 600 Balance 600 - Medications Medications: Current Medications Folic Acid (Folic Acid) 1 mg PO DAILY [facility] Last Admin: 03/07/17 09:36 Dose: 1 mg Pantoprazole Sodium (Protonix Ec Tab) 40 mg PO DAILY [facility] Last Admin: 03/07/17 09:36 Dose: 40 mg Sucralfate (Carafate Tab) 1 gm PO QID [facility] Last Admin: 03/07/17 21:34 Dose: 1 gm - Labs Labs: 03/08/17 07:02 03/08/17 07:02 PT 13.4 SECONDS (9.7-12.2) H 03/02/17 07:17 INR 1.2 03/02/17 07:17 APTT 31 SECONDS (21-34) 03/02/17 07:17 - Constitutional Appears: No Acute Distress - Head Exam Head Exam: ATRAUMATIC, NORMAL INSPECTION - Eye Exam Eye Exam: EOMI, Normal appearance - ENT Exam ENT Exam: Mucous Membranes Moist - Respiratory Exam Respiratory Exam: NORMAL BREATHING PATTERN - Cardiovascular Exam Cardiovascular Exam: REGULAR RHYTHM, +S1, +S2 - GI/Abdominal Exam GI & Abdominal Exam: Soft, Normal Bowel Sounds. absent: Tenderness - Extremities Exam Extremities Exam: Normal Inspection. absent: Calf Tenderness, Pedal Edema, Tenderness - Neurological Exam Neurological Exam: Alert, Awake, Oriented x3 - Psychiatric Exam Psychiatric exam: Normal Affect, Normal Mood - Skin Skin Exam: Normal Color, Warm Assessment and Plan - Assessment and Plan (Free Text) Assessment: 77M with undiagnosed lesions of liver and questionably stomach; anemia work-up in progress Follow up as an outpatient. No surgical intervention planned at this time. Cierra [place] PGY-1
[2017-03-08] MEDS: Pantoprazole 40 mg EC Tab PO SCH (10:48)
--- NOTE | 2017-03-08 11:35 | CP.PCM.DIS ---
<RioGianni Theresa - Last Filed: 03/08/17 11:53> Provider - Provider Date of Admission: 03/01/17 14:09 Attending physician: Chava Harris DO Primary care physician: PMD: Dr Eaton Consults: Hand Woodworking Sander/Oncologist: Dr Irwin GI: Dr Raines Surgery: Dr Charles Urology: Colten Curtis Time Spent in preparation of Discharge (in minutes): 46 Diagnosis - Discharge Diagnosis (1) Pernicious anemia Status: Acute Priority: Medium Hospital Course - Lab Results Lab Results: Most Recent Lab Values WBC 3.4 K/uL (4.8-10.8) L 03/08/17 07:02 RBC 2.56 Mil/uL (4.40-5.90) L 03/08/17 07:02 Hgb 8.3 g/dL (12.0-18.0) L 03/08/17 07:02 Hct 24.4 % (35.0-51.0) L 03/08/17 07:02 MCV 95.4 fL (80.0-94.0) H 03/08/17 07:02 MCH 32.3 pg (27.0-31.0) H 03/08/17 07:02 MCHC 33.8 g/dL (33.0-37.0) 03/08/17 07:02 RDW 18.6 % (11.5-14.5) H 03/08/17 07:02 Plt Count 46 K/uL (130-400) L 03/08/17 07:02 MPV 10.8 fL (7.2-11.7) 03/08/17 07:02 Neut % (Auto) 29.4 % (50.0-75.0) L 03/08/17 07:02 Lymph % (Auto) 37.5 % (20.0-40.0) 03/08/17 07:02 [place] % (Auto) 28.5 % (0.0-10.0) H 03/08/17 07:02 Eos % (Auto) 4.3 % (0.0-4.0) H 03/08/17 07:02 Baso % (Auto) 0.3 % (0.0-2.0) 03/08/17 07:02 Neut # 1.0 K/uL (1.8-7.0) L 03/08/17 07:02 Lymph # 1.3 K/uL (1.0-4.3) 03/08/17 07:02 [place] # 1.0 K/uL (0.0-0.8) H 03/08/17 07:02 Eos # 0.1 K/uL (0.0-0.7) 03/08/17 07:02 Baso # 0.0 K/uL (0.0-0.2) 03/08/17 07:02 Neutrophils % (Manual) 33 % (50-75) L 03/08/17 07:02 Lymphocytes % (Manual) 35 % (20-40) 03/08/17 07:02 Reactive Lymphs % 1 % (0-0) H 03/08/17 07:02 Monocytes % (Manual) 27 % (0-10) H 03/08/17 07:02 Eosinophils % (Manual) 4 % (0-4) 03/08/17 07:02 Nucleated RBC % 1 % (0-0) H 03/07/17 07:17 Differential Comment 03/03/17 07:26 Platelet Estimate Decreased (NORMAL) L 03/08/17 07:02 Hypochromasia (manual) Slight 03/07/17 07:17 Poikilocytosis (manual Slight 03/08/17 07:02 Anisocytosis (manual) Moderate 03/08/17 07:02 Microcytosis (manual) Slight 03/07/17 07:17 Macrocytosis (manual) Slight 03/07/17 07:17 Target Cells Slight 03/07/17 07:17 Tear Drop Cells Slight 03/07/17 07:17 Ovalocytes Slight 03/08/17 07:02 Smear Path Review 03/03/17 07:26 Retic Count 2.0 % (0.5-1.5) H 03/01/17 15:39 Haptoglobin <15 mg/dL (43-212) L 03/01/17 15:26 PT 13.4 SECONDS (9.7-12.2) H 03/02/17 07:17 INR 1.2 03/02/17 07:17 APTT 31 SECONDS (21-34) 03/02/17 07:17 Sodium 131 mmol/L (132-148) L 03/08/17 07:02 Potassium 4.1 mmol/L (3.6-5.2) 03/08/17 07:02 Chloride 99 mmol/L (98-107) 03/08/17 07:02 Carbon Dioxide 30 mmol/L (22-30) 03/08/17 07:02 Anion Gap 7 (10-20) L 03/08/17 07:02 BUN 10 mg/dL (9-20) 03/08/17 07:02 Creatinine 0.6 mg/dL (0.8-1.5) L 03/08/17 07:02 Est GFR ( Amer) > 60 03/08/17 07:02 Est GFR (Non-Af Amer) > 60 03/08/17 07:02 Random Glucose 85 mg/dL (75-110) 03/08/17 07:02 Calcium 7.9 mg/dl (8.6-10.4) L 03/08/17 07:02 Phosphorus 3.8 mg/dL (2.5-4.5) 03/08/17 07:02 Magnesium 2.3 mg/dL (1.6-2.3) 03/08/17 07:02 Iron 113 ug/dL (49-181) 03/01/17 15:26 TIBC 202 ug/dL (250-450) L 03/01/17 15:26 % Saturation 56 (20-55) H 03/01/17 15:26 Ferritin 251.0 ng/mL 03/01/17 15:26 Total Bilirubin 1.0 mg/dL (0.2-1.3) 03/08/17 07:02 Direct Bilirubin 0.5 mg/dL (0.0-0.4) H 03/03/17 07:26 AST 27 U/L (17-59) 03/08/17 07:02 ALT 32 U/L (21-72) 03/08/17 07:02 Alkaline Phosphatase 50 U/L (38-126) 03/08/17 07:02 Lactate Dehydrogenase 3569 U/L (313-618) H 03/01/17 15:26 Troponin I < 0.0120 ng/mL (0.00-0.120) 03/01/17 12:16 Total Protein 6.3 g/dL (6.3-8.3) 03/08/17 07:02 Total Protein (PEP) 6.0 g/dL (6.1-8.1) L 03/01/17 15:26 Albumin 3.2 g/dL (3.5-5.0) L 03/08/17 07:02 Albumin (PEP) 3.4 g/dL (3.8-4.8) L 03/01/17 15:26 Globulin 3.1 gm/dL (2.2-3.9) 03/08/17 07:02 Albumin/Globulin Ratio 1.0 (1.0-2.1) 03/08/17 07:02 Miygp-0-Jbktcibgs 0.3 g/dL (0.2-0.3) 03/01/17 15:26 Eihyt-4-Fyiqjcpdx 0.3 g/dL (0.5-0.9) L 03/01/17 15:26 Bqsl-7-Nosylqqa 0.3 g/dL (0.4-0.6) L 03/01/17 15:26 Erwd-9-Qmhifpcd 0.3 g/dL (0.2-0.5) 03/01/17 15:26 Gamma Globulins 1.4 g/dL (0.8-1.7) 03/01/17 15:26 Abnorm Protein Band 1 TEST NOT PERFORMED 03/01/17 15:26 Abnorm Protein Band 2 TEST NOT PERFORMED 03/01/17 15:26 Abnorm Protein Band 3 TEST NOT PERFORMED 03/01/17 15:26 Carcinoembryonic Ag 1.2 ng/mL (0-3.0) 03/02/17 07:17 CA 19-9 Antigen 9.6 U/mL (0-37) 03/02/17 07:17 Prostate Specific Ag 4.56 ng/mL (0.00-4.0) H 03/02/17 07:17 Vitamin B12 < 159 pg/mL (239-931) L 03/01/17 15:26 Folate 5.1 ng/mL 03/01/17 15:26 Urine Color Yellow (YELLOW) 03/01/17 15:06 Urine Clarity Clear (Clear) 03/01/17 15:06 Urine pH 5.0 (5.0-8.0) 03/01/17 15:06 Ur Specific [place] 1.018 (1.003-1.030) 03/01/17 15:06 Urine Protein Negative mg/dL (NEGATIVE) 03/01/17 15:06 Urine Glucose (UA) Normal mg/dL (Normal) 03/01/17 15:06 Urine Ketones Trace mg/dL (NEGATIVE) 03/01/17 15:06 Urine Blood 1+ (NEGATIVE) H 03/01/17 15:06 Urine Nitrate Negative (NEGATIVE) 03/01/17 15:06 Urine Bilirubin Negative (NEGATIVE) 03/01/17 15:06 Urine Urobilinogen 2.0 mg/dL (0.2-1.0) 03/01/17 15:06 Ur Leukocyte Esterase Neg [place]/uL (Negative) 03/01/17 15:06 Urine WBC (Auto) 2 /hpf (0-5) 03/01/17 15:06 Urine RBC (Auto) 6 /hpf (0-3) H 03/01/17 15:06 Hyaline Casts 0-2 /lpf (0-2) 03/01/17 15:06 Stool Occult Blood Negative (NEGATIVE) 03/01/17 13:15 CR & SPEP Interp See note 03/01/17 15:26 Parietal Cell Ab Titer 1:160 Titer (< 1:20) H 03/03/17 13:34 Anti-Parietal Cell Ab Positive (Negative) H 03/03/17 13:34 Hepatitis A IgM Ab Negative (NEGATIVE) 03/03/17 13:34 Hep Bs Antigen Negative (NEGATIVE) 03/03/17 13:34 Hep B Core IgM Ab Negative (NEGATIVE) 03/03/17 13:34 Hepatitis C Antibody Negative (NEGATIVE) 03/03/17 13:34 HIV 1&2 Antibody Screen Negative (NEGATIVE) 03/03/17 13:34 Blood Type B POSITIVE 03/01/17 12:48 Blood Type Confirm B POSITIVE 03/01/17 12:48 Antibody Screen Negative 03/01/17 12:48 - Hospital Course Hospital Course: CC: "I felt dizzy" HPI: Patient is a 77 year old male with no significant past medical history presents to the ED for dizziness. Patient states that he has been feeling dizzy for the past 2 weeks. This morning patient went to stand up and immediately felt like he was going to pass out. Patient states that he sat back down. Denies any loss of consciousness. Offers no other complaints at this time. Admits to having 10kg weight loss over the past year. Attributes weight loss to decrease in appetite. Patient reports that he last saw his PMD, Dr Eaton 1 year ago. Denies having any blood work done recently. Patient denies any history of anemia in the past. Denies headaches, visual changes, cp, palpitations, sob, abdominal pain, blood per rectum, urinary symptoms, changes in bowel habits or stool caliber. PMD: Dr Eaton Allergies: NKDA Medications: Denies Medical Hx: Denies Surgical Hx: Prostate surgery Social Hx: Denies alcohol, tobacco, drug use Family Hx: Non-contributory HOSPITAL COURSE: A thorough workup was done to evaluate this patients presenting pancytopenia, including low hemoglobin of 5.2. It was eventually determined that the etiology was pernicious anemia. Iron studies were ordered which were as follows: Iron 113 , TIBC 202 (Low), Ferritin 251, % Saturation 56 (High), Retic Count 2 (High). A calculated reticulocyte index was less than 2.0 which signifies hypoproliferation. Other markers were ordered with the following results: Elevated MCV, Vitamin B12 <159 (Low), Folate 5.1, Lactate Dehydrogenase 3569 ( High), Haptoglobin <15 (Low), Direct Bili 0.5 (High), Total Bili 1.4 (High). A smear path review revealed (1) Severe neutropenia (2) No increase in blasts (3) Thrombocytopenia (4) Red cell morphology: Teardrop cells, elliptocytes, microcytes and spherocytes. A serum PEP showed decrease in albumin, a pattern suggestive of decreased protein synthesis or protein loss. A carcinoembryonic Ag was within normal levels, the CA 19-9 Antigen was within normal levels. A FOBT was negative. 4 units of pRBCs were given in total. The blood studies collected illustrated a picture of severe megaoblastic anemia however a cystic mass perhaps emanating from the stomach seen on imaging necessitated that malignancy be ruled out. Further imaging determined that a stomach mass was unlikely. An EGD was done which only showed a small hiatal hernia and erythematous mucosa only (a specimen was not collected). A cancerous origin to the pancytopenia was lowered on our list of differentials. In addition , a bone scan was done which did not show any evidence of bony metastatic disease. And a brain MRI w/ and w/o contrast was done which only showed age related neuro degenerative changes. 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 And a parietal cell antibody titer was HIGH. After discussing with hospital intern/oncologist Dr Guevara, Pernicous Anemia was most likely the cause of this patient's pancytopenia. He will need lifelong monthly injections of vitamin B12. He was given 7 days of B12 1mg injections while in house. Of note, per imaging the patient had an enlarged prostate 4.9 x 5.5cm. He also had an elevated PSA and a UA with 1+ blood and RBC 6. A transrectal prostate ultrasound was attempted however this could not be done in house (per tech) and will to be done outpatient. Imaging results are as follows (see chart for full reports): EGD w/o biopsy 03/07 - post-op diagnosis: Small hiatus hernia; erythematous mucosa in the antrum, normal duodenum, no specimens collected CT head 03/01: "generalized atrophy, non-specific white matter changes" CT abd/pelvis with PO contrast 03/01: "Multiple hepatic masses/cysts. None of these sampled exceed mean Hounsfield values of 10. Solitary pulmonary nodule 6 mm basilar segment right lower lung lobe. Cystic mass contiguous with perhaps emanating from the greater curvature of the stomach. This measures 3.3 cm. Impression: Indeterminate findings in the left upper quadrant likely cystic mass emanating from the greater curve. Diverticulosis particularly in the descending colon and sigmoid". CT chest/abd/pelvis w/ IV contrast 03/04: (1) 3.5 x 3.1 cm cystic mass abutting the greater curvature of the stomach and left hepatic lobe. The differential considerations include exophytic cyst/ cystic mass arising from the left hepatic lobe or stomach. (2) Multiple cystic lesions in the stomach which may represent simple cysts or cystic metastasis. CT chest/abd/pelvis w/ IV contrast 03/04: No acute fracture. Multilevel degenerative changes. There is an osteolytic lesion in the left posterior acetabulum laterally. Multifocal radiolucent lesions at the vertebral endplates of the thoracic vertebral bodies likely represent Schmorl's nodes, the other differential consideration being osteolytic metastasis. Bone Scan 03/06: No evidence of bony metastatic disease. Brain MRI w/ and w/o contrast 03/07: "Reiteration of age related neuro degenerative changes is encountered primarily throughout the cerebrum. No abnormal intra or extra-axial enhancement identified throughout the brain" Discharge Exam - Head Exam Head Exam: ATRAUMATIC, NORMAL INSPECTION - Additional Findings Additional findings: - Constitutional Appears: Non-toxic, No Acute Distress - Head Exam Head Exam: ATRAUMATIC, NORMOCEPHALIC - Eye Exam Eye Exam: EOMI, Normal appearance - ENT Exam ENT Exam: Mucous Membranes Moist - Respiratory Exam Respiratory Exam: Clear to Ausculation Bilateral, NORMAL BREATHING PATTERN. absent: Accessory Muscle Use, Rales, Rhonchi, Wheezes, Respiratory Distress - Cardiovascular Exam Cardiovascular Exam: REGULAR RHYTHM, +S1, +S2 - GI/Abdominal Exam GI & Abdominal Exam: Soft, Normal Bowel Sounds. absent: Distended, Firm, Guarding, Rigid, Tenderness - Extremities Exam Extremities Exam: Normal Inspection. absent: Calf Tenderness, Pedal Edema - Neurological Exam Neurological Exam: Alert, Awake, Oriented x3 - Psychiatric Exam Psychiatric exam: Normal Affect, Normal Mood - Skin Skin Exam: Dry, Warm Discharge Plan - Discharge Medications Prescriptions: Cyanocobalamin [Vitamin B12 1000 mcg/ml Inj] 1,000 mcg IM Q30D #1 vial Sucralfate [Carafate Tab] 1 gm PO QID 30 Days #120 tab - Follow Up Plan Condition: GOOD Disposition: HOME/ ROUTINE Instructions: Syncope (DC), Syncope (GEN), Near Syncope (ED), Vitamin B12 Deficiency (GEN), Autoimmune Disease (GEN) Additional Instructions: Patient is medically stable for discharge. Patient was diagnosed with Pernicious Anemia and will need to receive a 1mg Vitamin B12 intramuscular injection once a month for life. Start date will be 04/13/2017. Per Gastroenterology, Dr Raines, who performed an EGD with findings of erythematous mucosa, the patient will need to take Sucralfate 1g by mouth every 6 hours for a total of 8 weeks. The patient will need to follow-up with his PMD, Dr Eaton, or establish care at the [facility], , so he may be followed (and receive a monthly B12 injection) and be referred to a hospital intern/oncologist. The patient will also need to be referred to a Urologist due to findings of an enlarged prostate and elevated PSA. If symptoms return or worsen, the patient should promptly return to the ER. Referrals: Mitesh Raines [Staff Provider] - <Chava Harris - Last Filed: 03/08/17 15:40> Provider - Provider Date of Admission: 03/01/17 14:09 Attending physician: Chava Harris DO Hospital Course - Lab Results Lab Results: Most Recent Lab Values WBC 3.4 K/uL (4.8-10.8) L 03/08/17 07:02 RBC 2.56 Mil/uL (4.40-5.90) L 03/08/17 07:02 Hgb 8.3 g/dL (12.0-18.0) L 03/08/17 07:02 Hct 24.4 % (35.0-51.0) L 03/08/17 07:02 MCV 95.4 fL (80.0-94.0) H 03/08/17 07:02 MCH 32.3 pg (27.0-31.0) H 03/08/17 07:02 MCHC 33.8 g/dL (33.0-37.0) 03/08/17 07:02 RDW 18.6 % (11.5-14.5) H 03/08/17 07:02 Plt Count 46 K/uL (130-400) L 03/08/17 07:02 MPV 10.8 fL (7.2-11.7) 03/08/17 07:02 Neut % (Auto) 29.4 % (50.0-75.0) L 03/08/17 07:02 Lymph % (Auto) 37.5 % (20.0-40.0) 03/08/17 07:02 [place] % (Auto) 28.5 % (0.0-10.0) H 03/08/17 07:02 Eos % (Auto) 4.3 % (0.0-4.0) H 03/08/17 07:02 Baso % (Auto) 0.3 % (0.0-2.0) 03/08/17 07:02 Neut # 1.0 K/uL (1.8-7.0) L 03/08/17 07:02 Lymph # 1.3 K/uL (1.0-4.3) 03/08/17 07:02 [place] # 1.0 K/uL (0.0-0.8) H 03/08/17 07:02 Eos # 0.1 K/uL (0.0-0.7) 03/08/17 07:02 Baso # 0.0 K/uL (0.0-0.2) 03/08/17 07:02 Neutrophils % (Manual) 33 % (50-75) L 03/08/17 07:02 Lymphocytes % (Manual) 35 % (20-40) 03/08/17 07:02 Reactive Lymphs % 1 % (0-0) H 03/08/17 07:02 Monocytes % (Manual) 27 % (0-10) H 03/08/17 07:02 Eosinophils % (Manual) 4 % (0-4) 03/08/17 07:02 Nucleated RBC % 1 % (0-0) H 03/07/17 07:17 Differential Comment 03/03/17 07:26 Platelet Estimate Decreased (NORMAL) L 03/08/17 07:02 Hypochromasia (manual) Slight 03/07/17 07:17 Poikilocytosis (manual Slight 03/08/17 07:02 Anisocytosis (manual) Moderate 03/08/17 07:02 Microcytosis (manual) Slight 03/07/17 07:17 Macrocytosis (manual) Slight 03/07/17 07:17 Target Cells Slight 03/07/17 07:17 Tear Drop Cells Slight 03/07/17 07:17 Ovalocytes Slight 03/08/17 07:02 Smear Path Review 03/03/17 07:26 Retic Count 2.0 % (0.5-1.5) H 03/01/17 15:39 Haptoglobin <15 mg/dL (43-212) L 03/01/17 15:26 PT 13.4 SECONDS (9.7-12.2) H 03/02/17 07:17 INR 1.2 03/02/17 07:17 APTT 31 SECONDS (21-34) 03/02/17 07:17 Sodium 131 mmol/L (132-148) L 03/08/17 07:02 Potassium 4.1 mmol/L (3.6-5.2) 03/08/17 07:02 Chloride 99 mmol/L (98-107) 03/08/17 07:02 Carbon Dioxide 30 mmol/L (22-30) 03/08/17 07:02 Anion Gap 7 (10-20) L 03/08/17 07:02 BUN 10 mg/dL (9-20) 03/08/17 07:02 Creatinine 0.6 mg/dL (0.8-1.5) L 03/08/17 07:02 Est GFR ( Amer) > 60 03/08/17 07:02 Est GFR (Non-Af Amer) > 60 03/08/17 07:02 Random Glucose 85 mg/dL (75-110) 03/08/17 07:02 Calcium 7.9 mg/dl (8.6-10.4) L 03/08/17 07:02 Phosphorus 3.8 mg/dL (2.5-4.5) 03/08/17 07:02 Magnesium 2.3 mg/dL (1.6-2.3) 03/08/17 07:02 Iron 113 ug/dL (49-181) 03/01/17 15:26 TIBC 202 ug/dL (250-450) L 03/01/17 15:26 % Saturation 56 (20-55) H 03/01/17 15:26 Ferritin 251.0 ng/mL 03/01/17 15:26 Total Bilirubin 1.0 mg/dL (0.2-1.3) 03/08/17 07:02 Direct Bilirubin 0.5 mg/dL (0.0-0.4) H 03/03/17 07:26 AST 27 U/L (17-59) 03/08/17 07:02 ALT 32 U/L (21-72) 03/08/17 07:02 Alkaline Phosphatase 50 U/L (38-126) 03/08/17 07:02 Lactate Dehydrogenase 3569 U/L (313-618) H 03/01/17 15:26 Troponin I < 0.0120 ng/mL (0.00-0.120) 03/01/17 12:16 Total Protein 6.3 g/dL (6.3-8.3) 03/08/17 07:02 Total Protein (PEP) 6.0 g/dL (6.1-8.1) L 03/01/17 15:26 Albumin 3.2 g/dL (3.5-5.0) L 03/08/17 07:02 Albumin (PEP) 3.4 g/dL (3.8-4.8) L 03/01/17 15:26 Globulin 3.1 gm/dL (2.2-3.9) 03/08/17 07:02 Albumin/Globulin Ratio 1.0 (1.0-2.1) 03/08/17 07:02 Ockxl-0-Lsadacevw 0.3 g/dL (0.2-0.3) 03/01/17 15:26 Cecqn-4-Sggmkviud 0.3 g/dL (0.5-0.9) L 03/01/17 15:26 Nsbq-1-Zcyjycqz 0.3 g/dL (0.4-0.6) L 03/01/17 15:26 Zkwi-5-Xxrgiiqi 0.3 g/dL (0.2-0.5) 03/01/17 15:26 Gamma Globulins 1.4 g/dL (0.8-1.7) 03/01/17 15:26 Abnorm Protein Band 1 TEST NOT PERFORMED 03/01/17 15:26 Abnorm Protein Band 2 TEST NOT PERFORMED 03/01/17 15:26 Abnorm Protein Band 3 TEST NOT PERFORMED 03/01/17 15:26 Carcinoembryonic Ag 1.2 ng/mL (0-3.0) 03/02/17 07:17 CA 19-9 Antigen 9.6 U/mL (0-37) 03/02/17 07:17 Prostate Specific Ag 4.56 ng/mL (0.00-4.0) H 03/02/17 07:17 Vitamin B12 < 159 pg/mL (239-931) L 03/01/17 15:26 Folate 5.1 ng/mL 03/01/17 15:26 Urine Color Yellow (YELLOW) 03/01/17 15:06 Urine Clarity Clear (Clear) 03/01/17 15:06 Urine pH 5.0 (5.0-8.0) 03/01/17 15:06 Ur Specific [place] 1.018 (1.003-1.030) 03/01/17 15:06 Urine Protein Negative mg/dL (NEGATIVE) 03/01/17 15:06 Urine Glucose (UA) Normal mg/dL (Normal) 03/01/17 15:06 Urine Ketones Trace mg/dL (NEGATIVE) 03/01/17 15:06 Urine Blood 1+ (NEGATIVE) H 03/01/17 15:06 Urine Nitrate Negative (NEGATIVE) 03/01/17 15:06 Urine Bilirubin Negative (NEGATIVE) 03/01/17 15:06 Urine Urobilinogen 2.0 mg/dL (0.2-1.0) 03/01/17 15:06 Ur Leukocyte Esterase Neg [place]/uL (Negative) 03/01/17 15:06 Urine WBC (Auto) 2 /hpf (0-5) 03/01/17 15:06 Urine RBC (Auto) 6 /hpf (0-3) H 03/01/17 15:06 Hyaline Casts 0-2 /lpf (0-2) 03/01/17 15:06 Stool Occult Blood Negative (NEGATIVE) 03/01/17 13:15 CR & SPEP Interp See note 03/01/17 15:26 Parietal Cell Ab Titer 1:160 Titer (< 1:20) H 03/03/17 13:34 Anti-Parietal Cell Ab Positive (Negative) H 03/03/17 13:34 Hepatitis A IgM Ab Negative (NEGATIVE) 03/03/17 13:34 Hep Bs Antigen Negative (NEGATIVE) 03/03/17 13:34 Hep B Core IgM Ab Negative (NEGATIVE) 03/03/17 13:34 Hepatitis C Antibody Negative (NEGATIVE) 03/03/17 13:34 HIV 1&2 Antibody Screen Negative (NEGATIVE) 03/03/17 13:34 Blood Type B POSITIVE 03/01/17 12:48 Blood Type Confirm B POSITIVE 03/01/17 12:48 Antibody Screen Negative 03/01/17 12:48 Attending/Attestation - Attestation I have personally seen and examined this patient.: Yes I have fully participated in the care of the patient.: Yes I have reviewed all pertinent clinical information, including history, physical exam and plan: Yes Notes (Text): 03/08/17 15:37 Medical attending: Patient was seen and examined, agree with the above note by medical facilities section director. The patient was again out of bed sitting up out of bed, he reported that he was feeling well. He underwent an EGD and this was stable - he did not have any concerning lesion on the report of the endoscopy. During the previous week there had been concerned about potential for a gastric cancer as he was very ow Hgb and needed PRBCs. He did not have any suspicious areas seen on the esophagus , stomach, or duodenum areas. He had returned positive antiparietal cell antibodies, as well as high proximal antibody titers. Per review of last week's notes he did come in with the very elevated MCV. He also had a decreased B12 level. He had already been given IM B12 shots. He will likley need B12 injections Q month for remainder of his life. He also had a bone scan done which showed no metastatic disease, and he had MRI the brain as well which appears to be benign and did not show any areas of potential metastasis. As mentioned previously the only thing he has not had done so far is a bone marrow biopsy and from what I understand the patient refused this earlier when it was offered to him. Thank you very much, Chava Harris
== END 2017-03-08 14:48 | disposition home or self-care (01) | DRG 395 ==
LOC: C.ER 09:36 → C.9E 14:09 → C.5S 16:34
PROVIDERS: ADMIT Hospitalist; ATTEND Hospitalist
PROC: 30233N1 Transfusion of Nonautologous Red Blood Cells into Peripheral Vein, Percutaneous Approach (ICD-10-PCS; principal; 2017-03-01)
PROC: 0DJ08ZZ Inspection of Upper Intestinal Tract, Via Natural or Artificial Opening Endoscopic (ICD-10-PCS; 2017-03-07)
DX: D51.0 Vitamin B12 deficiency anemia due to intrinsic factor deficiency (principal); D61.818 Other pancytopenia; R63.0 Anorexia; E87.1 Hypo-osmolality and hyponatremia; R17 Unspecified jaundice; Q44.6 Cystic disease of liver; R32 Unspecified urinary incontinence; R63.4 Abnormal weight loss; H93.11 Tinnitus, right ear; K44.9 Diaphragmatic hernia without obstruction or gangrene; Z68.1 Body mass index [BMI] 19.9 or less, adult; K31.89 Other diseases of stomach and duodenum; L54 Erythema in diseases classified elsewhere; K57.90 Diverticulosis of intestine, part unspecified, without perforation or abscess without bleeding; N40.0 Benign prostatic hyperplasia without lower urinary tract symptoms; Z77.098 Contact with and (suspected) exposure to other hazardous, chiefly nonmedicinal, chemicals